=== PATIENT | female | born 1960 | race Caucasian/White ===

== ENCOUNTER 2024-08-15 13:57 | Emergency (ER) | payer BC, SELFPAY ==
[2024-08-15] VITALS (7 sets, daily range): BP systolic 116; BP diastolic 64; PULSE 74–92; RESP 16–20; TEMP 37.6; O2SAT 96–100; BMI 22.3
--- NOTE | 2024-08-15 14:32 | CRLHL7_ITS ---
For Patients: As a result of the Century Cures Act, medical imaging exams and procedure reports are released immediately into your electronic medical record. You may view this report before your referring provider. If you have questions, please contact your health care provider. INDICATION: Left lower quadrant pain, possible diverticulitis TECHNIQUE: CT abdomen and pelvis acquired with 74 cc Isovue 370 IV contrast. COMPARISON: None. FINDINGS: Lower chest: Bibasilar atelectasis. Liver: Unremarkable. Gallbladder and bile ducts: Unremarkable. No biliary ductal dilation. Pancreas: Unremarkable. Spleen: Unremarkable. Adrenal glands: Unremarkable. Kidneys: Unremarkable. GI tract: No obstruction. Bowel wall thickening and soft tissue stranding surrounding a proximal sigmoid diverticula (2/117). No evidence perforation or fluid collection. Appendix is not visualized. Vasculature: Abdominal aorta is normal in caliber. Mesenteric arteries are patent. Lymph nodes: No lymphadenopathy. Peritoneum/Abdominal Wall: Trace pelvic ascites. Tiny fat containing umbilical hernia. Pelvis: Evaluation of the pelvis is limited by streak artifact. Bones: Right total hip arthroplasty with the lateral most screw extending into the right gluteus minimus muscle. Mild degenerative disease of the lumbar spine, most severe at L4-L5 with severe disc height loss. IMPRESSION: Acute uncomplicated proximal sigmoid diverticulitis. Please note that all CT scans at this facility use dose modulation, iterative reconstruction, and/or weight-based dosing when appropriate to reduce radiation dose to as low as reasonably achievable. Dictated by Valentina Vieira MD @ 08/15/2024 4:40:10 PM (Electronically Signed)
--- NOTE | 2024-08-15 14:50 | ED_ITS ---
HPI - General Adult General Chief complaint: Abdominal Pain <Luis Haskins MD - Last Filed: 08/19/24 16:17> Stated complaint: possible diverticulitis <Luis Haskins MD - Last Filed: 08/19/24 16:17> Time Seen by Provider: 08/15/24 13:59 <Luis Haskins MD - Last Filed: 08/19/24 16:17> History of Present Illness HPI narrative: Patient is a 64 year white female has had a history of diverticulitis in the past. She last had it in March while she was on a cruise ship and it was presumed to be the case. She got better. Over last couple of days had increasing pain in her left lower quadrant. No other specific complaints. She has no fever of significance, no rigors, no chills, she has no chest pain or breathing problem. She has had no blood in her stool. <Luis Haskins MD - Last Filed: 08/19/24 16:17> Related Data Home medications: Home Medications ?Medication ?Instructions ?Recorded ?Confirmed atorvastatin 20 mg tablet mg PO DAILY 08/11/24 08/15/24 gabapentin 300 mg capsule 300 mg PO QDAY 08/11/24 08/15/24 hydroxyzine pamoate 25 mg capsule mg PO 08/11/24 08/15/24 <Luis Haskins MD - Last Filed: 08/19/24 16:17> Allergies/adverse reactions: Allergies Allergy/AdvReac Type Severity Reaction Status Date / Time Sulfa (Sulfonamide Allergy Intermediate Unknown Verified 08/15/24 16:31 Antibiotics) <Luis Haskins MD - Last Filed: 08/19/24 16:17> Review of Systems Status of ROS: Reports: 6 or more systems reviewed and unremarkable except as noted in History and below <Luis Haskins MD - Last Filed: 08/19/24 16:17> [facility] Surgical History: Surgical History H/O toe surgery (~04/2024) ?Z98.890 - Other specified postprocedural states (ICD-10) <Luis Haskins MD - Last Filed: 08/19/24 16:17> Exam Narrative: Exam Narrative: Objective: Patient has got a low-grade temperature 99.7? is in mild is moderate /2nd discomfort Alert or x3 Good color Pulses regular Abdomen is soft on the right, the left she has some voluntary guarding and rigidity and is tender. No palpable mass. Extremities are no edema Neurologic nonfocal Good peripheral perfusion noted No skin rashes noted. <Luis Haskins MD - Last Filed: 08/19/24 16:17> Const: Vital Signs, click to edit/add: Vital Signs - 24 hr 08/15/24 14:14 08/15/24 15:44 08/15/24 15:45 Temperature 99.7 F H Pulse Rate 74 75 Pulse Rate [Pulse Oximeter] 92 Respiratory Rate 20 16 Blood Pressure [Ri ght Upper Arm] 116/64 Pulse Oximetry 97 100 99 Oxygen Delivery Me thod Room Air 08/15/24 16:00 08/15/24 16:15 08/15/24 16:32 Temperature Pulse Rate 78 76 85 Pulse Rate [Pulse Oximeter] Respiratory Rate Blood Pressure [Ri ght Upper Arm] Pulse Oximetry 98 96 99 Oxygen Delivery Me thod 08/15/24 16:45 Temperature Pulse Rate 79 Pulse Rate [Pulse Oximeter] Respiratory Rate 16 Blood Pressure [Ri ght Upper Arm] Pulse Oximetry 99 Oxygen Delivery Me thod <Luis Haskins MD - Last Filed: 08/19/24 16:17> Vital Signs, click to edit/add: Vital Signs - 24 hr 08/15/24 14:14 08/15/24 15:44 08/15/24 15:45 Temperature 99.7 F H Pulse Rate 74 75 Pulse Rate [Pulse Oximeter] 92 Respiratory Rate 20 16 Blood Pressure [Ri ght Upper Arm] 116/64 Pulse Oximetry 97 100 99 Oxygen Delivery Me thod Room Air 08/15/24 16:00 08/15/24 16:15 08/15/24 16:32 Temperature Pulse Rate 78 76 85 Pulse Rate [Pulse Oximeter] Respiratory Rate Blood Pressure [Ri ght Upper Arm] Pulse Oximetry 98 96 99 Oxygen Delivery Me thod 08/15/24 16:45 Temperature Pulse Rate 79 Pulse Rate [Pulse Oximeter] Respiratory Rate 16 Blood Pressure [Ri ght Upper Arm] Pulse Oximetry 99 Oxygen Delivery Me thod <Jose Smith MD - Last Filed: 08/15/24 18:03> Course Course ED Course: Patient signed out to Dr. Smith by Dr. Johnson at 4:00 p.m. on 08/15/2024. 64-year-old female with a history of diverticulitis presenting with left lower quadrant abdominal pain suspicious for an episode of acute di verticulitis. Laboratory workup and vital signs are reassuring. She does have a low-grade fever. Dr. Johnson has ordered a CT scan. He expects to find an acute sigmoid diverticulitis, likely without any complication. If CT scan confirms that finding, patient can be discharged home on a course of antibiotics. If the CT scan shows surgical pathology, Dr. Smith will contact surgery and arrange admission or operation, as needed CT abd pelvis IMPRESSION: Acute uncomplicated proximal sigmoid diverticulitis. I recheck the patient at 5:00 p.m.. She was sitting up in bed, conversant. Still endorses fairly significant discomfort and still waves of nausea but also feeling a bit thirsty. She has eager to try to treat her diverticulitis at home and wants to avoid hospitalization, if possible. However she needs more pain and nausea medication before she can discharge. Will start her on IV antibiotics and try Zofran and Toradol. Recheck-has completed IV antibiotic, after meds patient feels adequate to go home. has filled her home going prescriptions. Precautions for return to the ER reviewed <Jose Smith MD - Last Filed: 08/15/24 18:03> Vital Signs Vital signs: Initial Vital Signs Temperature 99.7 F H 08/15/24 14:14 Temperature Source Temporal Artery Scan 08/15/24 14:14 Pulse Rate 92 08/15/24 14:14 Respiratory Rate 20 08/15/24 14:14 Blood Pressure 116/64 08/15/24 14:14 Blood Pressure Mean 81 08/15/24 14:14 Pulse Oximetry 97 08/15/24 14:14 Oxygen Delivery Method Room Air 08/15/24 14:14 Vital Signs Temperature 99.7 F H 08/15/24 14:14 Pulse Rate 92 08/15/24 14:14 Respiratory Rate 20 08/15/24 14:14 Blood Pressure 116/64 08/15/24 14:14 Pulse Oximetry 97 08/15/24 14:14 Oxygen Delivery Method Room Air 08/15/24 14:14 Temperature 99.7 F H 08/15/24 14:14 Pulse Rate 79 08/15/24 16:45 Respiratory Rate 16 08/15/24 16:45 Blood Pressure 116/64 08/15/24 14:14 Pulse Oximetry 99 08/15/24 16:45 Oxygen Delivery Method Room Air 08/15/24 14:14 <Luis Haskins MD - Last Filed: 08/19/24 16:17> Initial Vital Signs Temperature 99.7 F H 08/15/24 14:14 Temperature Source Temporal Artery Scan 08/15/24 14:14 Pulse Rate 92 08/15/24 14:14 Respiratory Rate 20 08/15/24 14:14 Blood Pressure 116/64 08/15/24 14:14 Blood Pressure Mean 81 08/15/24 14:14 Pulse Oximetry 97 08/15/24 14:14 Oxygen Delivery Method Room Air 08/15/24 14:14 Vital Signs Temperature 99.7 F H 08/15/24 14:14 Pulse Rate 92 08/15/24 14:14 Respiratory Rate 20 08/15/24 14:14 Blood Pressure 116/64 08/15/24 14:14 Pulse Oximetry 97 08/15/24 14:14 Oxygen Delivery Method Room Air 08/15/24 14:14 Temperature 99.7 F H 08/15/24 14:14 Pulse Rate 79 08/15/24 16:45 Respiratory Rate 16 08/15/24 16:45 Blood Pressure 116/64 08/15/24 14:14 Pulse Oximetry 99 08/15/24 16:45 Oxygen Delivery Method Room Air 08/15/24 14:14 <Jose Smith MD - Last Filed: 08/15/24 18:03> Medications Administered Medications: Discontinued Medications Generic Name Dose Route Start Last Admin Trade Name Freq PRN Reason Stop Dose Admin Sodium Chloride 1,000 mls @ 6,000 mls/hr 08/15/24 14:45 08/15/24 18:02 0.9 % Sodium Chloride 1000 Ml IV 08/15/24 14:54 Infused .Q10M PRETTY Infusion Piperacillin Sod/Tazobactam 100 mls @ 200 mls/hr 08/15/24 17:18 08/15/24 18:02 Sod 4.5 gm/ Sodium Chloride IVPB 08/15/24 17:19 Infused ONCE ONE Infusion Ketorolac Tromethamine 15 mg 08/15/24 17:18 08/15/24 17:35 Ketorolac 15 Mg/Ml Inj IVP 08/15/24 17:19 15 mg ONCE ONE Administration Morphine Sulfate 4 mg 08/15/24 14:32 08/15/24 15:32 Morphine 4 Mg/Ml Inj IVP 08/15/24 14:33 4 mg ONCE ONE Administration Ondansetron HCl 4 mg 08/15/24 17:18 08/15/24 17:35 Ondansetron 2 Mg/Ml Inj IVP 08/15/24 17:19 4 mg ONCE ONE Administration <Luis Haskins MD - Last Filed: 08/19/24 16:17> Discontinued Medications Generic Name Dose Route Start Last Admin Trade Name Freq PRN Reason Stop Dose Admin Sodium Chloride 1,000 mls @ 6,000 mls/hr 08/15/24 14:45 08/15/24 18:02 0.9 % Sodium Chloride 1000 Ml IV 08/15/24 14:54 Infused .Q10M PRETTY Infusion Piperacillin Sod/Tazobactam 100 mls @ 200 mls/hr 08/15/24 17:18 08/15/24 18:02 Sod 4.5 gm/ Sodium Chloride IVPB 08/15/24 17:19 Infused ONCE ONE Infusion Ketorolac Tromethamine 15 mg 08/15/24 17:18 08/15/24 17:35 Ketorolac 15 Mg/Ml Inj IVP 08/15/24 17:19 15 mg ONCE ONE Administration Morphine Sulfate 4 mg 08/15/24 14:32 08/15/24 15:32 Morphine 4 Mg/Ml Inj IVP 08/15/24 14:33 4 mg ONCE ONE Administration Ondansetron HCl 4 mg 08/15/24 17:18 08/15/24 17:35 Ondansetron 2 Mg/Ml Inj IVP 08/15/24 17:19 4 mg ONCE ONE Administration <Jose Smith MD - Last Filed: 08/15/24 18:03> Medical Decision Making MDM Narrative Medical decision making narrative: 64-year-old female with mild peritonitic signs in the left lower quadrant, history of what is presumed to be diverticulosis diverticulitis, now with left lower quadrant pain for couple days duration increasing symptoms, mild peritoneal signs. Will do CT scanning laboratory studies, pain control, IV fluid. NPO status. Differential be intra-abdominal infection, diverticulitis, urinary tract infection. Will check the above-mentioned studies disposition pending findings. Patient's labs and urine at this time appear unremarkable. Await CT scanning. IV pain medicine was given. Will discuss Dr. Smith at change of shift. <Luis Haskins MD - Last Filed: 08/19/24 16:17> Lab Data Labs: Lab Results 08/15/24 08/15/24 Range/Units 14:45 15:09 WBC 9.67 (4.50-11.00) K/uL RBC 4.48 (4.00-5.20) m/uL Hgb 13.7 (12.0-16.0) gm/dL Hct 41.7 (33.0-51.0) % MCV 93 (80-100) fL MCH 31 (26-34) pg MCHC 33 (32-36) gm/dL RDW Coeff of Morgan 12.7 (11.5-15.5) % Plt Count 308 (140-440) K/uL Neut % (Auto) 76.3 H (42.0-72.0) % Lymph % (Auto) 13.8 L (20-44) % Gaines % (Auto) 8.7 (0.0-11.0) % Eos % (Auto) 0.8 (0.0-7.0) % Baso % (Auto) 0.2 (0.0-3.0) % Neut # (Auto) 7.40 H (1.7-7.0) K/uL Lymph # (Auto) 1.30 (0.90-2.90) K/uL Gaines # (Auto) 0.80 (0.00-0.90) K/UL Eos # (Auto) 0.08 (0.00-0.50) K/uL Baso # (Auto) 0.02 (0.00-0.30) K/uL Abs Immat Gran (auto) 0.02 (0.00-0.30) K/uL Imm/Tot Granulo (auto) 0.2 % Sodium 136 (135-149) mmol/L Potassium 4.8 (3.6-5.1) mmol/L Chloride 99 (96-114) mmol/L Carbon Dioxide 27 (20-32) mmol/L Anion Gap 10 (7-15) mEq/L BUN 9 (7-30) mg/dL Creatinine 0.7 (0.5-1.5) mg/dL Estimated Creat Clear 60.96 Estimated GFR 98 ml/min Glucose 105 (60-115) mg/dL Calcium 9.6 (8.4-10.6) mg/dL C-Reactive Protein 12.3 H (0.5-1.0) mg/dL Amylase 56 (18-89) U/L Urine Color Yellow (Yellow) Urine Appearance Slightly Cloudy A (Clear) Urine pH 6.0 (5.0-8.5) Ur Specific [place] <= 1.005 (1.000-1.030) Urine Protein Negative (Negative) Urine Glucose (UA) Negative (Negative) Urine Ketones 1+ A (Negative) Urine Blood Negative (Negative) Urine Nitrite Negative (Negative) Urine Bilirubin Negative (Negative) Urine Urobilinogen 0.2 (0.2-1.0) Ur Leukocyte Esterase Negative (Negative) Urine RBC 0-2 (0-2) Urine WBC 2-5 (0-5) Ur Squamous Epith Cells Few (None-Few) Urine Bacteria Few A (None) Fine Granular Casts Few A (None) <Luis Haskins MD - Last Filed: 08/19/24 16:17> Lab Results 08/15/24 08/15/24 Range/Units 14:45 15:09 WBC 9.67 (4.50-11.00) K/uL RBC 4.48 (4.00-5.20) m/uL Hgb 13.7 (12.0-16.0) gm/dL Hct 41.7 (33.0-51.0) % MCV 93 (80-100) fL MCH 31 (26-34) pg MCHC 33 (32-36) gm/dL RDW Coeff of Morgan 12.7 (11.5-15.5) % Plt Count 308 (140-440) K/uL Neut % (Auto) 76.3 H (42.0-72.0) % Lymph % (Auto) 13.8 L (20-44) % Gaines % (Auto) 8.7 (0.0-11.0) % Eos % (Auto) 0.8 (0.0-7.0) % Baso % (Auto) 0.2 (0.0-3.0) % Neut # (Auto) 7.40 H (1.7-7.0) K/uL Lymph # (Auto) 1.30 (0.90-2.90) K/uL Gaines # (Auto) 0.80 (0.00-0.90) K/UL Eos # (Auto) 0.08 (0.00-0.50) K/uL Baso # (Auto) 0.02 (0.00-0.30) K/uL Abs Immat Gran (auto) 0.02 (0.00-0.30) K/uL Imm/Tot Granulo (auto) 0.2 % Sodium 136 (135-149) mmol/L Potassium 4.8 (3.6-5.1) mmol/L Chloride 99 (96-114) mmol/L Carbon Dioxide 27 (20-32) mmol/L Anion Gap 10 (7-15) mEq/L BUN 9 (7-30) mg/dL Creatinine 0.7 (0.5-1.5) mg/dL Estimated Creat Clear 60.96 Estimated GFR 98 ml/min Glucose 105 (60-115) mg/dL Calcium 9.6 (8.4-10.6) mg/dL C-Reactive Protein 12.3 H (0.5-1.0) mg/dL Amylase 56 (18-89) U/L Urine Color Yellow (Yellow) Urine Appearance Slightly Cloudy A (Clear) Urine pH 6.0 (5.0-8.5) Ur Specific [place] <= 1.005 (1.000-1.030) Urine Protein Negative (Negative) Urine Glucose (UA) Negative (Negative) Urine Ketones 1+ A (Negative) Urine Blood Negative (Negative) Urine Nitrite Negative (Negative) Urine Bilirubin Negative (Negative) Urine Urobilinogen 0.2 (0.2-1.0) Ur Leukocyte Esterase Negative (Negative) Urine RBC 0-2 (0-2) Urine WBC 2-5 (0-5) Ur Squamous Epith Cells Few (None-Few) Urine Bacteria Few A (None) Fine Granular Casts Few A (None) <Jose Smith MD - Last Filed: 08/15/24 18:03> Discharge Plan Discharge Clinical Impression: Left sided abdominal pain <Luis Haskins MD - Last Filed: 08/19/24 16:17> Patient Disposition: Home, Self-Care <Luis Haskins MD - Last Filed: 08/19/24 16:17> Condition: Stable <Luis Haskins MD - Last Filed: 08/19/24 16:17> Instructions: Abdominal Pain (ED) <Luis Haskins MD - Last Filed: 08/19/24 16:17> Additional Instructions: As we discussed, please take your next dose of antibiotic tonight before you go to bed and use her antibiotic twice daily. Please return to the ER right away if you have worsening pain, high fever, uncontrolled nausea or vomiting, weakness, or any concerns. Please recheck with your regular doctor within 1 week for re-evaluation, even if you get better <Luis Haskins MD - Last Filed: 08/19/24 16:17> Prescriptions: No Action atorvastatin 20 mg tablet PO DAILY hydroxyzine pamoate 25 mg capsule PO Patient Comments: [NO ORIGINAL SIG] gabapentin 300 mg capsule 300 mg PO QDAY <Luis Haskins MD - Last Filed: 08/19/24 16:17> Follow Up/Referrals: Provider,Not a Local [Primary Care Provider] - <Luis Haskins MD - Last Filed: 08/19/24 16:17> Stand Alone Forms: [facility] Info Instructions <Luis Haskins MD - Last Filed: 08/19/24 16:17>
[2024-08-15 14:54] LABS: Appearance Urine Slightly Cloudy (Clear); Bilirubin Urine Negative (Negative); Blood Urine Negative (Negative); Color Urine Yellow (Yellow); Glucose Urine Negative (Negative); Ketones Urine 1+ (Negative); Leukocyte Esterase Urine Negative (Negative); Nitrite Urine Negative (Negative); Protein Urine Negative (Negative); Specific Gravity Urine <= 1.005 (1.000-1.030); Urobilinogen Urine 0.2 (0.2-1.0)
[2024-08-15 15:07] LABS: Bacteria Urine Few; Fine Granular Casts Urine Few; RBC Urine 0-2 (0-2); Squamous Epithelial Cell Urine Few (None-Few)
[2024-08-15] MEDS: MORPHINE 4 MG/ML INJ IVP (15:32)
[2024-08-15] MEDS: 0.9 % SODIUM CHLORIDE 1000 ml 1,000 ML 6000 ML IV (15:32)
[2024-08-15 15:43] LABS: Basophils Absolute Auto 0.02 K/uL (0.00-0.30); Basophils Percent Auto 0.2 % (0.0-3.0); Chloride* 99 mmol/L (96-114); Eosinophils Absolute Auto 0.08 K/uL (0.00-0.50); Eosinophils Percent Auto 0.8 % (0.0-7.0); Hematocrit 41.7 % (33.0-51.0); Hemoglobin* 13.7 gm/dL (12.0-16.0); Immature Granulocytes Abs Auto 0.02 K/uL (0.00-0.30); Immature Granulocytes Pct Auto 0.2 %; Lymphocytes Percent Auto 13.8 % (20-44); Mean Corpuscular HGB Conc 33 gm/dL (32-36); Mean Corpuscular Hemoglobin 31 pg (26-34); Mean Corpuscular Volume 93 fL (80-100); Monocytes Percent Auto 8.7 % (0.0-11.0); Neutrophils Percent Auto 76.3 % (42.0-72.0); Platelet Count* 308 K/uL (140-440); Potassium* 4.8 mmol/L (3.6-5.1); RDW Coefficient of Variation % 12.7 % (11.5-15.5); Red Blood Count 4.48 m/uL (4.00-5.20); Sodium* 136 mmol/L (135-149); White Blood Count* 9.67 K/uL (4.50-11.00)
[2024-08-15 15:46] LABS: Amylase* 56 U/L (18-89); Anion Gap 10 mEq/L (7-15); Blood Urea Nitrogen* 9 mg/dL (7-30); Carbon Dioxide* 27 mmol/L (20-32); Creatinine* 0.7 mg/dL (0.5-1.5); Est. Creatinine Clearance* 60.96; Estimated Glomerular Filt Rate 98 ml/min; Glucose* 105 mg/dL (60-115)
--- OUTSIDE RECORDS SUMMARY | 2024-08-15 15:46 | XMS_ITS | Clinical Summary ---
Author Organization [facility] Address [address] [place] [id number] Care Team Providers Care Striper Name Role Phone Axel Victor MD Unavailable Lawrence Rowland PA-C Unavailable [phone] Axel Victor MD Primary Care Provider [phone] Allergies Active Allergy Reactions Criticality Noted Date Comments Sulfa Antibiotics Unknown,Other (See Comments) Medium 09/18/2002 Pt not sure of reaction, happened as an infant Medications atorvastatin (LIPITOR) 20 MG tablet TAKE 1 TABLET BY MOUTH EVERY NIGHT FOR CHOLESTEROL OR STROKE PREVENTION 1 Active LORazepam (ATIVAN) 2 MG tabletIndicatio ns:Primary insomnia TAKE ONE TABLET BY MOUTH EVERY SIX HOURS NEEDED FOR ANXIETY 60 tablet 3 Active busPIRone (BUSPAR) 10 MG tablet Take 1 tablet (10 mg) by mouth nightly as needed 30 tablet 4 Active Additional Information Patient not taking.Reported on 09/12/2023 diazepam (VALIUM) 5 MG tabletIndicatio ns:Claustrophob ia Take 1 hr prior to scheduled MRI for anxiety 1 tablet 4 Active cyclobenzaprine (FLEXERIL) 10 MG tabletIndicatio ns:Strain of neck muscle, subsequent encounter Take 1 tablet (10 mg) by mouth daily as needed for muscle spasms. 60 tablet 5 Active Active Problems Problem Noted Date Diagnosed Date Epigastric pain 06/15/2023 Overview (06/15/2023): Has seen GI in past. Following now with [facility] and scheduled for EGD Inflammation of sacroiliac joint 05/12/2023 Strain of neck muscle, subsequent encounter 02/2023 Overview (01/23/2024): Does have hx of chronic pain, taking tramadol in past but not currently. Is reasonably controlled with cyclobenzaprine. Discussed that I would not recommend tramadol, especially in setting of benzodiazepine for sleep and patient is comfortable with maintaining Flexeril and starting with PT referral. Discussed needing pain management referral if looking to restart tramadol. 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 I think it unlikely that off-label usage of other types of medication would result in any greater benefit. Presently-utilized lorazepam works reasonably well, and she arrived at this medication after trials of many others. She has not needed to escalate the dosage for an extended period of time and denies any associated adverse effects. I would recommend continuation of this medication. There is no concurrent addiction history. I also think she would greatly benefit from behavioral interventions for insomnia (cognitive behavioral therapy for insomnia or CBT-I). We specifically discussed stimulus control and sleep-restriction measures. I will send her the name of a behavioral sleep medicine specialist close to her local area. Longitudinal provision of CBT-I with such a provider is considered gold standard. Success rates are typically quoted at 8 weeks, assuming dedicated adherence. Given the chronicity of the patient's complaints, I think it unlikely that she will ever be a good sleeper, but there is clearly much room for improvement. I will send additional online, [place], and literature resources. 03/2023 appt with new PCP: Did discuss that this is not best long-term treatment especially as patient ages. Discussed CBT-I and need to likely reduce pharmacotherapy in the upcoming years and patient is understanding and agreeable. Occipital neuralgia of left side 02/29/2020 Avascular necrosis of right femoral head 019 Acquired hallux valgus of right foot 01/02/2018 Overview (05/12/2023): Added automatically from request for surgery [id number] Added automatically from request for surgery [id number] Curly toe, acquired, right 01/02/2018 Overview (05/12/2023): Added automatically from request for surgery [id number] Added automatically from request for surgery [id number] Chronic low back pain 09/22/2016 Neck pain on left side 07/30/2016 Gastroesophageal reflux disease 06/06/2015 Spondylosis of cervical spine without myelopathy 12/03/2014 Encounters Date Type Department Care Team Description 07/25/2024 2:15 PM ANIMAL RIDE MANAGER Virtual Visit [facility] [address] [place] [phone] Axel Victor MD Carlson, Cody M, GC Family history of malignant neoplasm of breast (Primary Dx); Family history of malignant neoplasm of colon 07/23/2024 MyC Medical Advice [facility] [address] [place] [phone] Cristopher Velasquez GC 07/19/[address] [facility] [address] [place] [phone] Kalie River 07/02/[address] [facility] [place] [address] [place] [address] Axel Victor MD Refill Request 05/21/[address] [facility] [place] [address] [place] [address] Anny Koehler from Last 3 Months Immunizations Name Administration Dates Next Due COVID-19 12+ (Pfizer) 05/12/2023 Flu, Unspecified 03/06/2020 Influenza Vaccine 18-64 (Flublok) 03/11/2023 Influenza Vaccine >6 months,quad, PF 08/16/2019 Pneumo Conj 13-V (2010&after) 08/16/2019 RSV (Abrysvo) 05/12/2023 Family History Medical History Relation Comments Breast Cancer Daughter Heart Disease Father tachy Hypertension Father Lipids Mother Family History Negative Sister 2 Relation Status Comments Daughter Alive Father Mother Sister Social History Tobacco Use Types Packs/Day Years Used Date Smoking Tobacco: Never Passive Smoke Exposure: Never Smokeless Tobacco: Never Alcohol Use Standard Drinks/Week Comments Yes 4 (1 standard drink = 0.6 oz pur e alcohol) 4 drinks per week PHQ-2 Answer Date Recorded PHQ-2 Score 2 06/15/2023 Adolescent Education Answer Date Record ed Getting School Help Needed Not on file 03/10 Food Insecurity Answer Date Recorded Within the past 12 months, d id you worry that your food would run out before you got money to buy more? No 06/15/2023 Within the past 12 months, d id the food you bought just not last and you didn t have money to get more? No 06/15/2023 Housing Stability Answer Date Recorded Do you have housing? (Housin g is defined as stable permanent housing and does not include staying ouside in a car, in a tent, in an abandoned building, in an overnight senior care, or couch-surfing.) Yes 06/15/2023 Are you worried about losing your housing? No 06/15/2023 Financial Resource Strain Answer Date R ecorded Within the past 12 months, h ave you or your family members you live with been unable to get utilities (heat, electricity) when it was really needed? No 06/15/2023 Transportation Needs Answer Date Record ed Within the past 12 months, h as lack of transportation kept you from medical appointments, getting your medicines, non-medical meetings or appointments, work, or from getting things that you need? No 06/15/2023 Interpersonal Safety Answer Date Record ed Do you feel physically and e motionally safe where you currently live? Yes 03/11/2023 Within the past 12 months, h ave you been hit, slapped, kicked or otherwise physically hurt by someone? No 03/11/2023 Within the past 12 months, h ave you been humiliated or emotionally abused in other ways by your partner or ex-partner? No 03/11/2023 Comments No Sex and Gender Information Value Date Recorded Sex Assigned at Not on file Legal Sex Female 3:12 AM ANIMAL RIDE MANAGER Gender Identity Not on file Sexual Orientation Not on file Last Filed Vital Signs Vital Sign Reading Time Taken Comments Blood Pressure 137/77 09/12/2023 4:27 PM CDT Pulse 87 09/12/2023 4:27 PM CDT Temperature 36.8 C (98.2 F) 09/12/2023 4:27 PM CDT Respiratory Rate 19 06/15/2023 1:55 PM ANIMAL RIDE MANAGER Oxygen Saturation 99% 09/12/2023 4:27 PM CDT Inhaled Oxygen Concentration - - Weight 67.6 kg (149 lb) 06/15/2023 1:55 PM ANIMAL RIDE MANAGER Height 175.3 cm (5' 9) 06/15/2023 1:55 PM ANIMAL RIDE MANAGER Body Mass Index 22 06/15/2023 1:55 PM ANIMAL RIDE MANAGER Plan of Treatment Upcoming Encounters Date Type Department Care Team (Late st Contact Info) Description 08/29/2024 3:30 PM CDT Office Visit [facility] [address] [place] [address] [place] [address] [place] [address] Health Maintenance Due Date Last Done Comments CT COLONOGRAPHY 1962 DEPRESSION ACTION PLAN 1962 FIT 1962 FLEX SIG 1962 sDNA (Cologuard) 1962 HEPATITIS C SCREENING 1980 DTAP/TDAP/TD IMMUNIZATION (1 - Tdap) 1987 ZOSTER IMMUNIZATION (1 of 2) 2012 Pneumococcal Vaccine: 50+ Years (2 of 2 - PPSV23) 08/15/2020 08/16/2019 PHQ-9 09/10/2023 03/11/2023, 02/03/2023 COVID-19 Vaccine (2 - season) 2024 05/12/2023 INFLUENZA VACCINE (#1) 2024 , 03/06/2020, 08/16/2019 ANNUAL REVIEW OF HM ORDERS 05/12/2024 05/12/2023 LIPID 05/12/2024 05/12/2023, 04/27/2022 YEARLY PREVENTIVE VISIT 06/15/2024 06/15/2023 MAMMO SCREENING 09/13/2025 09/14/2023, 0312/2022, 08/20/2022, Additional history exists GLUCOSE 05/12/2026 05/12/2023, 04/02/2009, 09/18/2002 HPV FOLLOW-UP 06/15/2028 06/15/2023 PAP FOLLOW-UP 06/15/2028 06/15/2023, 01/01/1999 ADVANCE CARE PLANNING 06/16/2028 06/16/2023 COLONOSCOPY 06/16/2030 06/16/2023 COLORECTAL CANCER SCREENING 06/16/2030 HIV SCREENING Completed 05/12/2023 RSV VACCINE Completed 05/12/2023 PAP Discontinued 06/15/2023, 01/01/1999 HPV IMMUNIZATION Aged Out No longer e ligible based on patient's age to complete this topic MENINGITIS IMMUNIZATION Aged Out No l onger eligible based on patient's age to complete this topic Procedures Procedure Name Priority Date/Time Associated Diagnosis Comments MAMMOGRAM - HIM SCAN 09/14/2023 12:00 AM CDT COLONOSCOPY - HIM SCAN 06/16/2023 12:00 AM ANIMAL RIDE MANAGER HPV HIGH RISK TYPES DNA CERVICAL Routine 06/15/2023 2:32 PM ANIMAL RIDE MANAGER Cervical cancer screening GYNECOLOGIC CYTOLOGY Routine 06/15/2023 2:32 PM ANIMAL RIDE MANAGER Cervical cancer screening COMPREHENSIVE METABOLIC PANEL Routine 05/12/2023 4:29 PM ANIMAL RIDE MANAGER Upper abdominal pain HIV ANTIGEN ANTIBODY COMBO Routine 05/12/2023 4:29 PM ANIMAL RIDE MANAGER Screening for HIV (human immunodeficiency virus) LIPID REFLEX TO DIRECT LDL PANEL Routine 05/12/2023 4:29 PM ANIMAL RIDE MANAGER Elevated blood pressure reading without diagnosis of hypertension PHQ-9 DEPRESSION SCREENING ORDER Routine 02/03/2023 from Last 3 Months or Most Recently Relevant to Health Maintenance Results * Mammogram - HIM Scan (09/14/2023 12:00 AM CDT) Anatomical Region Laterality Modality Other 09/14/2023 us Provider Outside IMG MAMMOGRAPHY ORDERABLES Maggy l Result * COLONOSCOPY - HIM SCAN (06/16/2023 12:00 AM ANIMAL RIDE MANAGER) 06/16/2023 us Provider Outside PROCEDURES Final Result * Pap Screen with HPV - recommended age 30 - 65 years (06/15/2023 2:32 PM ANIMAL RIDE MANAGER) Interpretation Negative for Intraepithelial Lesion or Malignancy (NILM) 06/20/2023 8:55 AM ANIMAL RIDE MANAGER [facility] Comment Papanicolaou Test Limitations: Cervical cytology is a screening test with limited sensitivity, and regular screening is critical for cancer prevention. Pap tests are primarily effective for the diagnosis/prevent ion of squamous cell carcinoma, not adenocarcinoma or other cancers. 06/20/2023 8:55 AM ANIMAL RIDE MANAGER [facility] Specimen Adequacy Satisfactory for evaluation, endocervical/valero sformation zone component present 06/20/2023 8:55 AM ANIMAL RIDE MANAGER [facility] Clinical Information post-menopausal 06/20/2023 8:55 AM ANIMAL RIDE MANAGER [facility] Reflex Testing Yes regardless of result 06/20/2023 8:55 AM ANIMAL RIDE MANAGER [facility] Previous Abnormal? No 06/20/2023 8:55 AM ANIMAL RIDE MANAGER [facility] Performing Labs The technical component of this testing was completed at [facility] 06/20/2023 8:55 AM ANIMAL RIDE MANAGER [facility] Brushing CERVIX UTERI STRUCTURE / Unknown 06/15/2023 2:32 PM ANIMAL RIDE MANAGER 06/15/2023 3:14 PM ANIMAL RIDE MANAGER us Axel Victor MD LAB - DORI AP Final Result [facility] Specialty Lab [address] [facility], [address] [address], [facility] [phone] * HPV High Risk Types DNA Cervical (06/15/2023 2:32 PM ANIMAL RIDE MANAGER) Other HR HPV Negative Negative 06/21/2023 2:14 PM ANIMAL RIDE MANAGER [facility] HPV16 DNA Negative Negative 06/21/2023 2:14 PM ANIMAL RIDE MANAGER [facility] HPV18 DNA Negative Negative 06/21/2023 2:14 PM ANIMAL RIDE MANAGER [facility] FINAL DIAGNOSIS This patient's sample is negative for HPV DNA. This test was developed and its performance characteristics determined by the [facility], [facility]. It has not been cleared or approved by the FDA. The laboratory is regulated under CLIA as qualified to perform high-complexity testing. This test is used for clinical purposes. It should not be regarded as investigational or for research. METHODOLOGY: The Johanna Halina 4800 system uses automated extraction, simultaneous amplification of HPV (L1 region) and beta-globin, followed by real time detection of fluorescent labeled HPV and beta globin using specific oligonucleotide probes. The test specifically identifies types HPV 16 DNA and HPV 18 DNA while concurrently detecting the rest of the high risk types (31, 33, 35, 39, 45, 51, 52, 56, 58, 59, 66 or 68). COMMENTS: This test is not intended for use as a screening device for woman under age 30 with normal cervical cytology. Results should be correlated with cytologic and histologic findings. Close clinical followup is recommended. 06/21/2023 2:14 PM ANIMAL RIDE MANAGER [facility] Brushing CERVIX UTERI STRUCTURE / Unknown Non-blood Collection / Unknown 06/15/2023 2:32 PM ANIMAL RIDE MANAGER 06/21/2023 7:41 AM ANIMAL RIDE MANAGER us Axel Victor MD LAB - BLOOD ORDERABLES Final Res ult [facility] [address] [facility] [address], [address] [address], [facility] [phone] * HIV Antigen Antibody Combo (05/12/2023 4:29 PM ANIMAL RIDE MANAGER) HIV Antigen Antibody Combo Nonreactive Nonreactive 05/13/2023 12:46 PM ANIMAL RIDE MANAGER SPECIALTY C[facility]/PROT/EN DO Comment:HIV-1 p24 Ag & HIV-1 /HIV-2 Ab Not Detected Blood STRUCTURE OF RIGHT UPPER LIMB / Unknown Venipuncture / Unknown 05/12/2023 4:29 PM ANIMAL RIDE MANAGER 05/12/2023 4:29 PM ANIMAL RIDE MANAGER us Amina D ePaz MD LAB - BLOOD ORDERABLES Final Re sult [facility] C[facility]/PROT/ENDO [facility]/Prot/Endo [address] [facility], [address] [address], [facility] [phone] * (ABNORMAL) Lipid panel reflex to direct LDL Fasting (05/12/2023 4:29 PM ANIMAL RIDE MANAGER) Cholesterol 196 <200 mg/dL 05/12/2023 11:01 PM ANIMAL RIDE MANAGER [facility] Triglycerides 58 <150 mg/dL 05/12/2023 11:01 PM ANIMAL RIDE MANAGER [facility] Direct Measure HDL 77 >=50 mg/dL 05/12/2023 11:01 PM ANIMAL RIDE MANAGER [facility] LDL Cholesterol Calculated 107(H) <=100 mg/dL 05/12/2023 11:01 PM ANIMAL RIDE MANAGER [facility] Non HDL Cholesterol 119 <130 mg/dL 05/12/2023 11:01 PM ANIMAL RIDE MANAGER [facility] Patient Fasting > 8hrs? Unknown 05/12/2023 11:01 PM ANIMAL RIDE MANAGER [facility] Blood STRUCTURE OF RIGHT UPPER LIMB / Unknown Venipuncture / Unknown 05/12/2023 4:29 PM ANIMAL RIDE MANAGER 05/12/2023 4:29 PM ANIMAL RIDE MANAGER [facility] - 05/12/2023 11:01 PM ANIMAL RIDE MANAGER Cholesterol Desirable: <200 mg/dL Triglycerides Normal: Less than 150 mg/dL Borderline High: 150-199 mg/dL High: 200-499 mg/dL Very High: Greater than or equal to 500 mg/dL Direct Measure HDL Female: Greater than or equal to 50 mg/dL Male: Greater than or equal to 40 mg/dL LDL Cholesterol Desirable: <100mg/dL Above Desirable: 100-129 mg/dL Borderline High: 130-159 mg/dL High: 160-189 mg/dL Very High: >= 190 mg/dL Non HDL Cholesterol Desirable: 130 mg/dL Above Desirable: 130-159 mg/dL Borderline High: 160-189 mg/dL High: 190-219 mg/dL Very High: Greater than or equal to 220 mg/dL us Amina De Paz MD LAB - BLOOD ORDERABLES Final Re sult [facility] [place] [address] [facility], [address] [id number], [facility] [phone] * Comprehensive metabolic panel (BMP + Alb, Alk Phos, ALT, AST, Total. Bili, TP) (05/12/2023 4:29 PM ANIMAL RIDE MANAGER) Sodium 140 135 - 145 mmol/L 05/12/2023 11:01 PM ANIMAL RIDE MANAGER [facility] Comment:Reference intervals for this test were updated on 03/01/2023 to more accurately reflect our healthy population. There may be differences in the flagging of prior results with similar values performed with this method. Interpretation of those prior results can be made in the context of the updated reference intervals. Potassium 4.0 3.4 - 5.3 mmol/L 05/12/2023 11:01 PM ANIMAL RIDE MANAGER [facility] Carbon Dioxide (CO2) 26 22 - 29 mmol/L 05/12/2023 11:01 PM ANIMAL RIDE MANAGER [facility] Anion Gap 14 7 - 15 mmol/L 05/12/2023 11:01 PM ANIMAL RIDE MANAGER [facility] Urea Nitrogen 8.2 8.0 - 23.0 mg/dL 05/12/2023 11:01 PM ANIMAL RIDE MANAGER [facility] Creatinine 0.66 0.51 - 0.95 mg/dL 05/12/2023 11:01 PM ANIMAL RIDE MANAGER [facility] GFR Estimate >90 >60 mL/min/1. 73m2 05/12/2023 11:01 PM ANIMAL RIDE MANAGER [facility] Calcium 10.1 8.8 - 10.2 mg/dL 05/12/2023 11:01 PM ANIMAL RIDE MANAGER [facility] Chloride 100 98 - 107 mmol/L 05/12/2023 11:01 PM ANIMAL RIDE MANAGER [facility] Glucose 89 70 - 99 mg/dL 05/12/2023 11:01 PM ANIMAL RIDE MANAGER [facility] Alkaline Phosphatase 55 40 - 150 U/L 05/12/2023 11:01 PM ANIMAL RIDE MANAGER [facility] Comment:Reference intervals for this test were updated on 04/19/2023 to more accurately reflect our healthy population. There may be differences in the flagging of prior results with similar values performed with this method. Interpretation of those prior results can be made in the context of the updated reference intervals. AST 22 0 - 45 U/L 05/12/2023 11:01 PM ANIMAL RIDE MANAGER [facility] Comment:Reference intervals for this test were updated on 11/15/2022 to more accurately reflect our healthy population. There may be differences in the flagging of prior results with similar values performed with this method. Interpretation of those prior results can be made in the context of the updated reference intervals. ALT 16 0 - 50 U/L 05/12/2023 11:01 PM ANIMAL RIDE MANAGER [facility] Comment:Reference intervals for this test were updated on 11/15/2022 to more accurately reflect our healthy population. There may be differences in the flagging of prior results with similar values performed with this method. Interpretation of those prior results can be made in the context of the updated reference intervals. Protein Total 7.3 6.4 - 8.3 g/dL 05/12/2023 11:01 PM ANIMAL RIDE MANAGER [facility] Albumin 4.4 3.5 - 5.2 g/dL 05/12/2023 11:01 PM ANIMAL RIDE MANAGER [facility] Bilirubin Total 0.4 <=1.2 mg/dL 05/12/2023 11:01 PM ANIMAL RIDE MANAGER [facility] Blood STRUCTURE OF RIGHT UPPER LIMB / Unknown Venipuncture / Unknown 05/12/2023 4:29 PM ANIMAL RIDE MANAGER 05/12/2023 4:29 PM ANIMAL RIDE MANAGER us Amina De Paz MD LAB - BLOOD ORDERABLES Final Re sult [facility] [address] [facility], [address] [place] [address], [facility] [phone] * PHQ-9 DEPRESSION SCREENING ORDER (02/03/2023) PHQ9 SCORE 9 Narrative Sussy Rincon - 02/03/2023 OUTSIDE RECORDS Progress Note us Provider Outside OTHER Final Result from Last 3 Months or Most Recently Relevant to Health Maintenance Insurance BCBS OUT OF STATE BCBS OUT OF STATE Care Teams Striper Relationship Specialty [place] [id number] [address] [id number] PCP - General Family Medicine 07/25/24 [place] [address] [address] [address] [id number] Assigned PCP 06/30/23 Lawrence Rowland PA-C 1 [facility] [place] [id number] Assigned Sleep Provider 08/19/23
--- OUTSIDE RECORDS SUMMARY | 2024-08-15 15:46 | XMS_ITS | Encounter Summary ---
Author Organization [facility] Address [address] [place] [address] Care Team Providers Care Trim Line Worker Name Role Phone No Ref-Primary, Physician Primary Care Provider Axel Victor MD Unavailable Lawrence Rowland PA-C Unavailable + [phone] Axel Victor MD Primary Care Provider [phone] Encounter Details Date Type Department Care Team (Late st Contact Info) Description 05/21/2024 [facility] Medical Advice [address] [address] Anny Koehler Social History Tobacco Use Types Packs/Day Years [...] in an abandoned building, in an overnight snf, or couch-surfing.) Yes 06/15/2023 Are you worried [...] on file Legal Sex Female 3:12 AM 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 OPERATOR Gender Identity Not on file Sexual Orientation Not on file documented as of this encounter Plan of Treatment Upcoming Encounters Date Type Department Care Team (Late st Contact Info) Description 08/29/2024 3:30 PM CDT Office Visit [facility] [address] [place] [address] [place] [address] [place] [address] documented as of this encounter Visit Diagnoses Not on filedocumented in this encounter Additional Health Concerns Assessment Noted Time PHQ-9 Depression Total Score: 13 023 10:50 AM CDT documented as of this encounter Care Teams Trim Line Worker Relationship Specialty Start Date End Date No Ref-Primary, Physician PCP - General 07/03/19 07/24/24 [place] [address] [place] [address] PCP - General Family Medicine 07/25/24 [place] [id number] [address] [phone] Assigned PCP 06/30/23 Lawrence Rowland PA-C 1 [facility] NABIL[place] LOBO [id number] Assigned Sleep Provider 08/19/23 documented as of this encounter
--- OUTSIDE RECORDS SUMMARY | 2024-08-15 15:46 | XMS_ITS | Encounter Summary ---
Author Organization [facility] Address [address] [place] [address]. [place] [address] Care Team Providers Care Application Penetration Tester Name Role Phone Axel Victor MD Unavailable Lawrence Rowland PA-C Unavailable + [phone] Axel Victor MD Primary Care Provider [phone] Reason for Visit * Reason Comments Consult * Consultation (Routine) - Pending Review Specialty Diagnoses / Procedures Referred By Tereza hood Referred To Contact Medical Oncology Diagnoses Family history [place] [address] [place] [id number] Phone: tel: fax: Referral ID Status Reason Start Date Expiration Date V isits Requested Visits Authorized [id number] Pending Review 01/23/2024 01/22/2025 2 2 Encounter Details Date Type Department Care Team (Late st Contact Info) Description 07/25/2024 2:15 PM CMO & PRESIDENT Virtual Visit [facility] [address] [place] [address] [place] [address] [place] [address] Cristopher Velasquez, [address] [place], [place] [address] Family history of malignant neoplasm of breast (Primary Dx); Family history of malignant neoplasm of colon Social History Tobacco Use Types Packs/Day Years [...] Answer Date Recorded Do you have housing? (Brittnee g is defined as stable permanent housing and does not include staying ouside in a car, in a tent, in an abandoned building, in an overnight assisted, or couch-surfing.) Yes 06/15/2023 Are you worried [...] on file Legal Sex Female 3:12 AM CMO & PRESIDENT Gender Identity Not on file Sexual Orientation Not on file documented as of this encounter Patient Instructions * Patient Instructions* Cristopher Velasquez, GC - 07/25/2024 2:15 PM CMO & PRESIDENT Images from the original note were not included. Assessing Cancer Risk Cancer is a common diagnosis which impacts many families. Individuals may develop cancer due to environmental factors (such as exposures and lifestyle), aging, genetic predisposition, or a combination of these factors. Only about 5-10% of cancers are thought to be due to an inherited cancer susceptibility gene. These families often have: Several people with the same or related types of cancer Cancers diagnosed at a young age (before age 50) Individuals with more than one primary cancer Multiple generations of the family affected with cancer Comprehensive Breast and Gynecologic Cancer Panel We each inherit two copies of every gene in our bodies: one from our mother, and one from our father. Each gene has a specific job to do. When a gene has a mistake or ???mutation?? in it, it does not work like it should. Some people may be candidates for genetic testing of more than one gene. For these families, genetic testing using a cancer panel may be offered. These panels will test different genes at once known to increase the risk for breast, ovarian, uterine, and/or other cancers. This handout will review common hereditary breast and gynecologic cancer syndromes. The genes that will be discussed in this handout are: JACQUELIN, BRCA1, BRCA2, BRIP1, CDH1, CHEK2, MLH1, MSH2, MSH6, PMS2, EPCAM, PTEN, PALB2, RAD51C, RAD51D, and TP53. The purpose of this handout is to serve as a brief summary of the breast and gynecologic cancer risk genes that have published clinical management guidelines for individuals who are found to carry a mutation. Inheriting a mutation does not mean a person will develop cancer, but it does significantly increase their risk above the general population risk. Hereditary Breast and Ovarian Cancer Syndrome (BRCA1 and BRCA2) A single mutation in one of the copies of BRCA1 or BRCA2 increases the risk for breast and ovarian cancer, among others. The risk for pancreatic cancer and melanoma may also be slightly increased in some families. The chart below shows the chance that someone with a BRCA mutation would develop cancer in his or her lifetime1,2,3,4. Lifetime Cancer Risks General Population BRCA1 BRCA2 Breast 12% >60% >60% Ovarian 1-2% 39-58% 13-29% Prostate 12% 7-26% 19-61% Male Breast 0.1% 0.2-1.2% 1.8-7.1% Pancreas 1-2% Up to 5% 5-10% A person???s ethnic background is also important to consider, as individuals of Ashkenazi Buddhism ancestry have a higher chance of having a BRCA gene mutation. There are three BRCA mutations that occur more frequently in this population. Hardin Syndrome (MLH1, MSH2, MSH6, PMS2, and EPCAM) Currently five genes are known to cause Hardin Syndrome: MLH1, MSH2, MSH6, PMS2, and EPCAM. A singlemutation in one of the Hardin Syndrome genes increases the risk for colon, endometrial, ovarian, andstomach cancers. Other cancers that occur less commonly in Hardin Syndrome include urinary tract, skin, and brain cancers. The chart below shows the chance that a person with Hardin syndrome would develop cancer in his or her lifetime5. Lifetime Cancer Risks General Population Hardin Syndrome Colon 5% 10-61% Endometrial 3% 13-57% Ovarian 1-2% 1-38% Stomach <1% 1-9% *Cancer risk varies depending on Hardin syndrome gene found Jim Syndrome (PTEN) Jim syndrome is a hereditary condition that increases the risk for breast, thyroid, endometrial,colon, and kidney cancer. Jim syndrome is caused by a mutation in the PTEN gene. A single mutation in one of the copies of PTEN causes Jim syndrome and increases cancer risk. The chart below shows the chance that someone with a PTEN mutation would develop cancer in their lifetime6,7. Other benign features seen in some individuals with [place] syndrome include benign skin lesions (facial papules, keratoses, lipomas), learning disability, autism, thyroid nodules, colon polyps, and larger head size. Lifetime Cancer Risks General Population [place] Breast 12% 40-60%* Thyroid 1% Up to 38% Renal 1-2% Up to 35% Endometrial 3% Up to 28% Colon 5% Up to 9% Melanoma 2-3% Up to 6% *Emerging data suggests the risk for breast cancer could be greater than 60% Li-Fraumeni Syndrome (TP53) Li-Fraumeni Syndrome (LFS) is a cancer predisposition syndrome caused by a mutation in the TP53 gene. A single mutation in one of the copies of TP53 increases the risk for multiple cancers. Individuals with LFS are at an increased risk for developing cancer at a young age. The lifetime risk for deve lopment of a LFS-associated cancer is 50% by age 30 and 90% by age 60. Core Cancers: Sarcomas, Breast, Brain, Lung, Leukemias/Lymphomas, Adrenocortical carcinomas Other Cancers: Gastrointestinal, Thyroid, Skin, Genitourinary Hereditary Diffuse Gastric Cancer (CDH1) Currently, one gene is known to cause hereditary diffuse gastric cancer (HDGC): CDH1. Individuals with HDGC are at increased risk for diffuse gastric cancer and lobular breast cancer. Of people diagnosed with HDGC, 30-50% have a mutation in the CDH1 gene. This suggests there are likely other genes that may cause HDGC that have not been identified yet. Lifetime Cancer Risks General Population HDGC Diffuse Gastric <1% ~80% Breast 12% 41-60% Additional Genes JACQUELIN JACQUELIN is a moderate-risk breast cancer gene. Women who have a mutation in JACQUELIN can have between a 2-4 fold increased risk for breast cancer compared to the general population8. JACQUELIN mutations have also been associated with increased risk for pancreatic cancer between 5-10%9. Individuals who inherit twoATM mutations have a condition called ataxia-telangiectasia (AT). This rare autosomal recessive condition affects the nervous system and immune system, and is associated with progressive cerebellar ataxia beginning in childhood. Individuals with ataxia- telangiectasia often have a weakened immune system and have an increased risk for childhood cancers. PALB2 Mutations in PALB2 have been shown to increase the risk of breast cancer up to 41-60% in some families; where individuals fall within this risk range is dependent upon family [id number]. PALB2 mutations have also been associated with increased risk for pancreatic cancer between 5-10%. Individuals who inherit two PALB2 mutations--one from their mother and one from their father--have a condition called Fanconi Anemia. This rare autosomal recessive condition is associated with short stature, developmental delay, bone marrow failure, and increased risk for childhood cancers. CHEK2 CHEK2 is a moderate-risk breast cancer gene. Women who have a mutation in CHEK2 have around a 2-4 fold increased risk for breast cancer compared to the general population, and this risk may be higherdepending upon family history.11,12,13 The risk of colon cancer may be twice as high as the generalpopulation risk of colon cancer of 5%. Mutations in CHEK2 have also been shown to increase the risk of other cancers, including prostate, however these cancer risks are currently not well understood. BRIP1, RAD51C and RAD51D Mutations in RAD51C and RAD51D have been shown to increase the risk of ovarian cancer and breast cancer 14,. Mutations in BRIP1 have been shown to increase the risk of ovarian cancer and possibly female breast cancer 15 . Lifetime Cancer Risk General Population BRIP1 RAD51C RAD51D Breast 12% Not well defined 20-40% 20-40% Ovarian 1-2% 5-15% 10-15% 10-20% Inheritance All of the cancer syndromes reviewed above are inherited in an autosomal dominant pattern. This means that if a parent has a mutation, each of their children will have a 50% chance of inheriting thatsame mutation. Therefore, each child --male or female-- would have a 50% chance of being at increased risk for developing cancer. Image obtained from Genetics Home Reference, 2013 Mutations in some genes can occur de luda, which means that a person???s mutation occurred for the first time in them and was not inherited from a parent. Now that they have the mutation, however, itcan be passed on to future generations. Genetic Testing Genetic testing involves a blood test and will look for any harmful mutations that are associated with increased cancer risk. If possible, it is recommended that the person(s) who has had cancer be tested before other family members. That person will give us the most useful information about whether or not a specific gene is associated with the cancer in the family. Results There are three possible results of genetic testing: Positive--a harmful mutation was identified in one or more of the genes Negative--no mutations were identified in any of the genes tested Variant of unknown significance--a variation in one of the genes was identified, but it is unclear how this impacts cancer risk in the family Advantages and Disadvantages There are advantages and disadvantages to genetic testing. Advantages May clarify your cancer risk Can help you make medical decisions May explain the cancers in your family May give useful information to your family members (if you share your results) Disadvantages Possible negative emotional impact of learning about inherited cancer risk Uncertainty in interpreting a negative test result in some situations Possible genetic discrimination concerns (see below) Genetic Information Nondiscrimination Act ([place]ONG) The Genetic Information Nondiscrimination Act of 2008 (KONG) is a federal law that protects individuals from health insurance or employment discrimination based on a genetic test result alone (with some exceptions, including employers with fewer than 15 employees, and ). Although rare, GINAdoes not cover discrimination protections in terms of life insurance, fdc care, or disabilityinsurances. Visit the [employer] [place] website to learn more. Reducing Cancer Risk All of the genes described in this handout have nationally recognized cancer screening guidelines that would be recommended for individuals who test positive. In addition to increased cancer screening, surgeries may be offered or recommended to reduce cancer risk. Recommendations are based upon an i ndividual???s genetic test result as well as their personal and family history of cancer. Questions to Think About Regarding Genetic Testing: What effect will the test result have on me and my relationship with my family members if I have aninherited gene mutation? If I don???t have a gene mutation? Should I share my test results, and how will my family react to this news, which may also affect them? Are my children ready to learn new information that may one day affect their own health? Hereditary Cancer Resources FORCE: Facing Our Risk of Cancer Empowered facingourrisk.org [place] bebrightpink.org Li-Fraumeni Syndrome Association lfsassociation.org PTEN World PTENworld.com No stomach for cancer, Inc. nostomachforcancer.org Stomach cancer relief network Scrnet.org Collaborative Group of the Americas on Inherited Colorectal Cancer (CGA) cgaicc.com Cancer Care cancercare.org Armenian Cancer Society (ACS) cancer.org National Cancer [place] (NCI) cancer.gov References Guadalupe Chew, Inderjit CORREIAP, Sonia S, Guillermina TOTH, Cristian JE, Sofya JL, Germán N, Venus H, Sheila O,Rony Chew, Joe Whittington, Peter P, Stephanie S, Oscar DM, Paredes N, Olnarcisa E, Charles-Elton H, Marquez E, Trevainski J, Gronmassimo J, Heather B, Carmenus H, Arnoldlacius S, Eerola H, Anel H, Cristi K, Clovis OP. Average risks of breast and ovarian cancer associated with BRCA1 or BRCA2 mutations detected in case series unselected for family history: a combined analysis of 222 studies. Am J Hum [place]ores. 2003;72:1117-30. Justin N, Mesha Buchanan, Luis Alberto G. BRCA1 and BRCA2 Hereditary Breast and Ovarian Cancer. Gene Reviewsonline. 2013. Juan YC, Abi S, Treasure G, Hyde S. Breast cancer risk among male BRCA1 and BRCA2 mutation carriers. J Natl Cancer Inst. 2007;99:1811-4. Dougie BARRETT, Anshu I, Oz Hayward, Debora E, Sammy ER, Verona F. Risk of breast cancer in male BRCA2 carriers. J Med Delores. 2010;47:710-1. National Comprehensive Cancer Network. Clinical practice guidelines in oncology, colorectal cancer screening. Available online (registration required). 2015. Mott MH, Nabila J, Vinicio J, Kami LA, Ornella MS, Eng C. Lifetime cancer risks in individuals with germline PTEN mutations. Clin Cancer Res. 2012;18:400-7. Deedee Flores. Jim Syndrome: A Critical Review of the Clinical Literature. J Delores Fork Assembler. 2009:18:13-27. Derick A, Rodo D, Stewart S, Bozena P, Chagtai T, Isaac M, Harjeet B, Jajanel H, Davis R, Patsy K, Ramesh L, Dougie BARRETT, Oscar Rowland, Shaji DF, Tanvi MR, The Breast Cancer Susceptibility Collaboration (UK) & Kika Reyna. JACQUELIN mutations that cause ataxia-telangiectasia are breast cancer susceptibility alleles. Nature Genetics. 2006;38:873-875 Fernando N , Ishmael Y, Elidia Hayward, Carlin L, Maria Luisa GM , Kristine ML, Gallinger S, Ackerman AG, Syngal S,Chelle ML, Daniel J , Matt R, Cherelle SZ, Carlyle JR, Mary VE, Gali M, Vogelstein B, Carlos N, Gen RH, Da KW, and Janine AP. JACQUELIN mutations in patients with hereditary pancreatic cancer. Cancer Discover. 2012;2:41-46 Guadalupe Ling., et al. Breast-Cancer Risk in Families with Mutations in PALB2. NEJM. 2014; 371(6):497-506. CHEK2 Breast Cancer Case-Control Consortium. CHEK2*1100delC and susceptibility to breast cancer: A collaborative analysis involving 10,860 breast cancer cases and 9,065 controls from 10 studies. Am JHum [place]ores, 74 (2003), pp. 3434-4364 Carola T, Alicia S, Jack K, et al. Spectrum of Mutations in BRCA1, BRCA2, CHEK2, and TP53 in Families at High Risk of Breast Cancer. LUCIO. 2006;295(12):0761-7983. Nancy C, Duke D, Maria Elena A, et al. Risk of breast cancer in women with a CHEK2 mutation with and without a family history of breast cancer. J Clin Oncol. 2011;29:0541-7137. Lowell H, Benjie Burleson, Anika SJ, et al. Contribution of germline mutations in the RAD51B, RAD51C, and RAD51D genes to ovarian cancer in the population. J Clin Oncol. 2015;33(26):5163-3418. Doi:10.1200/JCO.2015.61.2408. Kristyn T, Akbar DF, Hernan P, et al. Mutations in BRIP1 confer high risk of ovarian cancer. Jael Delores. 2011;43(11):0268-5952. doi:10.1038/ng.955. & PRESIDENT documented in this encounter Progress Notes * Cristopher Velasquez GC - 07/25/2024 2:15 PM CST 07/25/2024 Referring Provider: Axel Victor MD Presenting Information: I met with Samantha for her telephone genetic counseling visit, through the Cancer Risk Management Program, to discuss her family history of breast, colon, and bile duct cancer. Today we reviewed thishistory, cancer screening recommendations, and available genetic testing options. Personal History: Samantha is a 64 year old year old female. She does not have any personal history of cancer. She hadher first menstrual period at age 15, her first child at age 22, and completed menopause at age 43.Samantha has her uterus in place, but it is unclear how much of her ovaries remain in tact, based onprevious surgeries. She reports that she used combined hormone replacement therapy for approximately 18 years. She has regular clinical breast exams and mammograms; her most recent mammogram in September 2023 was normal. Samantha began having colonoscopies in her 30's. Her most recent colonoscopy in June 2023 was normal and follow-up was recommended in 7 years. She does not regularly do any other cancer screening at this time. Family History: (Please see scanned pedigree for detailed family history information) Samantha's daughter was diagnosed breast cancer at age 38. She had negative genetic testing for 77 genes via [employer]'s CancerNext-Expanded panel in 2022. Samantha's sister was diagnosed with breast cancer at age 36. She was later diagnosed with bile ductcancer at age 55 and at age 56. She is reported to have had negative BRCA1/2 testing. Samantha's paternal grandmother was diagnosed with breast cancer at age 71 and at age 84. A maternal aunt was diagnosed with colon cancer at age 82. Her daughter, Samantha's cousin, was diagnosed with breast cancer at age 29. Her daughter, Samantha's cousin, was diagnosed with breast cancer at age 31. A maternal uncle was diagnosed with chronic leukemia at an unknown age and at age 56. Samantha's maternal grandmother had two sisters, who were identical twins to each other, that were diagnosed with breast cancer at unknown ages. Samantha's maternal grandmother's brother was diagnosed with an unknown cancer at an unknown age. His daughter, Samantha's first cousin once removed, was diagnosed with breast cancer at an unknown age. Samantha's maternal grandmother's brother was diagnosed with an unknown cancer at an unknown age. There is no other reported paternal family history of cancer. Her maternal ethnicity is [place] and [place]. Her paternal ethnicity is [place] and [place]. There isno known Ashkenazi Buddhism ancestry on either side of her family. There is no reported consanguinity. Discussion: Samantha's family history of breast cancer is suggestive of a hereditary cancer syndrome. We reviewed the features of sporadic, familial, and hereditary cancers. We discussed that mutationsin either BRCA1 or BRCA2 could be possible hereditary explanations for her family history of cancer. Mutations in the BRCA1 or BRCA2 gene are known to cause Hereditary Breast and Ovarian Cancer Syndrome (HBOC). HBOC typically presents with multiple family members diagnosed with breast cancer beforeage 50 and/or ovarian cancer. Other cancer risks associated with HBOC include male breast cancer, prostate cancer, pancreatic cancer, and melanoma. Of note, Samantha's daughter had negative genetic testing for BRCA1/2, along with 75 other genes associated with hereditary cancer. Given this result, we likely do not have a currently identifiable genetic/hereditary cause to Samantha's family history of cancer. However, there is still multiple othermaternal relatives, including her sister, that were diagnosed with early onset breast cancer, so Samantha could consider genetic testing to better understand the risk for hereditary cancer in her family. We discussed the natural history and genetics of hereditary cancer. A detailed handout regarding hereditary cancer, along with the other information we discussed, will be mailed to Samantha at the endof our appointment today and can be found in the after visit summary. Topics included: inheritance pattern, cancer risks, cancer screening recommendations, and also risks, benefits and limitations oftesting. Based on her personal and family history, Samantha meets current National Comprehensive Cancer Network (NCCN) criteria for genetic testing of BRCA1/2 along with other high-penetrance breast cancer susceptibility genes (I.e. CDH1, PALB2, PTEN, and TP53), given her sister's early onset breast cancer. We discussed that there are additional genes that could cause increased risk for breast cancer. As many of these genes present with overlapping features in a family and accurate cancer risk cannot always be established based upon the pedigree analysis alone, it would be reasonable for Samantha to consider panel genetic testing to analyze multiple genes at once. Samantha wanted to think about her genetic testing options and if she wants to pursue genetic testing. She will contact me should she have any questions and/or if she would like to pursue genetic testing in the future. The possible outcomes of positive, negative, and uncertain were discussed with Samantha. A detailed handout that explains this in detail was provided to the patient. Medical Management: For Samantha, we reviewed that the information from genetic testing may determine: additional cancer screening for which Samantha may qualify (i.e. mammogram and breast MRI, more frequent colonoscopies, more frequent dermatologic exams, etc.), options for risk reducing surgeries Samantha could consider (i.e. bilateral mastectomy, surgery to remove her ovaries and/or uterus, etc.), and targeted chemotherapies if she were to develop certain cancers in the future (i.e. immunotherapy for individuals with [place] syndrome, PARP inhibitors, etc.). These recommendations and possible targeted chemotherapies will be discussed in detail if genetic testing is completed. Plan: 1) Today Samantha elected to think about her genetic testing options and logistics of testing. 2) A copy of the after visit summary will be sent to Samantha. 3) Samantha will contact me should she decide to pursue genetic testing in the future. I spent 60 minutes on the date of the encounter doing chart review, history and exam, documentationand further activities as noted above. Cristopher Velasquez MS, [facility] [place] [place] Licensed, Certified Genetic Counselor Virtual Visit Details Type of service: Telephone Visit Originating Location (pt. Location): Home Distant Location (provider location): Off-site Telephone visit completed due to the patient did not consent to a video visit. & PRESIDENT documented in this encounter Nursing Notes * Katia Boston - 07/25/2024 2:15 PM CST Current patient location: [id number] [place] [address] Is the patient currently in the state of [place]? YES Visit mode: TELEPHONE If the visit is dropped, the patient can be reconnected by:TELEPHONE VISIT: Phone number: Telephone Information: Will anyone else be joining the visit? NO (If patient encounters technical issues they should call [phone] :[phone]) Are changes needed to the allergy or medication list? N/A Are refills needed on medications prescribed by this physician? NO Rooming Documentation: Not applicable Reason for visit: Consult KATIA BOSTON VVF & PRESIDENT documented in this encounter Plan of Treatment Upcoming Encounters Date Type Department Care Team (Late st Contact Info) Description 08/29/2024 3:30 PM CDT Office Visit [facility] [place] [address] [place] [address] [place] [address] [place] [address] documented as of this encounter Visit Diagnoses Diagnosis Family history of malignant neoplasm of breast- Primary Family history of malignant neoplasm of colon Family history of malignant neoplasm of gastrointestinal tract documented in this encounter Additional Health Concerns Assessment Noted Time PHQ-9 Depression Total Score: 13 023 10:50 AM CDT documented as of this encounter Care Teams Application Penetration Tester Relationship Specialty [place] [id number] [place] [id number] PCP - General Family Medicine 07/25/24 [place] [id number] [address] NABIL[place] Barrera [id number] Assigned PCP 06/30/23 Lawrence Rowland PA-C [address] [place] [address] NABILA LOBO [id number] Assigned Sleep Provider 08/19/23 documented as of this encounter
--- OUTSIDE RECORDS SUMMARY | 2024-08-15 15:46 | XMS_ITS | Encounter Summary ---
Author Organization [place] Address [facility] [place] [address] Care Team Providers Care Design Assistant Name Role Phone No Ref-Primary, Physician Primary Care Provider Axel Victor MD Unavailable Lawrence Rowland PA-C Unavailable + [phone] Reason for Visit * Reason Onset Date Comments Refill Request 07/02/2024 Encounter Details Date Type Department Care Team (Late st Contact Info) Description 07/02/2024 MyC Refill [facility] [address] [place] [address] [place] [address] [place] [address] Refill Request Social History Tobacco Use Types Packs/Day Years [...] Date Recorded Do you have housing? 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 Gender Identity Not on file Sexual Orientation Not on file documented as of this encounter Plan of Treatment Upcoming Encounters Date Type Department Care Team (Late st Contact Info) Description 08/29/2024 3:30 PM CDT Office Visit [facility] [address] [place] [address] [place] [address] [place] [address] documented as of this encounter Visit Diagnoses Diagnosis Strain of neck muscle, subsequent encounter documented in this encounter Additional Health Concerns Assessment Noted Time PHQ-9 Depression Total Score: 13 023 10:50 AM CDT documented as of this encounter Care Teams Design Assistant Relationship Specialty Start Date End Date No Ref-Primary, Physician PCP - General 07/03/19 07/24/24 [place] [id number] [place] [address]inner [id number] Assigned PCP 06/30/23 Lawrence Rowland PA-C [address] [facility] [place]IL[place] LOBO [id number] Assigned Sleep Provider 08/19/23 documented as of this encounter
--- OUTSIDE RECORDS SUMMARY | 2024-08-15 15:46 | XMS_ITS | Clinical Summary ---
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 For routine questions regarding patient records, call [phone] during business hours, M-F 8:00 AM - 5:00 PM Central Time. Record requests for emergency care only can be directed to [phone] at any time.[facility] Allergies Active Allergy Reactions Criticality Noted Date Comments Sulfa (Sulfonamide Antibiotics) Other (see comments) Medium 09/18/2002 Pt not sure of reaction, happened as an Medications * This document contains information received from the source organization and may not represent a complete record from that organization. pimecrolimus (ELIDEL) 1 % cream as needed. 022 Active atorvastatin (LIPITOR) 20 mg tablet TAKE 1 TABLET BY MOUTH EVERY NIGHT FOR CHOLESTEROL OR STROKE PREVENTION 023 Active cyclobenzaprine (FlexeriL) 10 mg tablet Take 10 mg by mouth as needed. 024 Active MAGNESIUM ORAL Take 1 capsule by mouth at bedtime. Active sertraline (Zoloft) 50 mg tablet Take 50 mg by mouth. 024 Active traZODone (DesyreL) 50 mg tablet Take 2 tablets by mouth at bedtime. 024 Active VITAMIN D2-VITAMIN K1 ORAL Take by mouth. Activ e bisacodyL (Dulcolax) 5 mg EC tablet Take 10 mg by mouth. Active hydrOXYzine (VistariL) 25 mg capsule Take 1 capsule (25 mg total) by mouth every 6 (six) hours as needed for itching. 30 capsule Active Additional Information Patient taking differently:25 mg oral Every 6 hours PRN, itching,4 pills at night for sleep, Reported on 07/26/2024 gabapentin (Neurontin) 100 mg capsule Take 100 mg by mouth 2 (two) times a day. Morning and night Active montelukast (Singulair) 10 mg tablet Take 1 tablet (10 mg total) by mouth daily. 30 tablet 11 021 2021 Discontinued(T herapy completed) diazePAM (Valium) 5 mg tablet Take 1 hr prior to scheduled MRI for anxiety 2024 Discontinued(T herapy completed) aspirin 325 mg tablet Take 1 tablet (325 mg total) by mouth 2 (two) times a day with meals. Beginning the day after surgery, take twice daily until done with immoblization. 100 tablet 1 2024 Discontinued(T herapy completed) ondansetron ODT (Zofran-ODT) 4 mg disintegrating tablet Dissolve 1 tablet (4 mg total) in the mouth every 8 (eight) hours as needed for nausea or vomiting. 15 tablet 04/18/20 24 2:[address] CLERK 2024 Discontinued(T herapy completed) cholecalciferol, vitamin D3, (Vitamin D3) 10 mcg (400 unit) capsule Take by mouth. 2024 Discontinued(T herapy completed) HYDROmorphone (Dilaudid) 2 mg tabletIndications :Acute Pain Exception Take 1-2 tablets (2-4 mg total) by mouth every 4-6 hours as needed for pain not controlled by Tylenol (acetaminophen ) 20 tablet 024 2024 Discontinued hydrOXYzine (VistariL) 25 mg capsule Take 1 capsule (25 mg total) by mouth every 6 (six) hours as needed for anxiety. 120 capsule 3 2024 Discontinued(T herapy completed) Active Problems Problem Noted Date Diagnosed Date Hallux Rigidus Left 03/07/2024 Radiculopathy Lumbar 12/19/2023 Pain Hip Right 12/19/2023 Pain Myofascial 12/19/2023 Pain Epigastric 06/15/2023 Overview (03/07/2024): Has seen GI in past. Following now with ROGERIO and scheduled for EGD Aftercare Total Hip Arthroplasty 05/27/2022 Radiculopathy Cervical 03/26/2022 Psoas Tendinitis Right Hip 03/16/2022 Overview (03/16/2022): Added automatically from request for surgery [id number] Pain Sacroiliac 08/01/2020 Arthroplasty Total Hip Replacement Status Post R ight 08/01/2020 Pain Total Hip Arthroplasty Subsequent Chronic Insomnia Disorder 02/29/2020 Hallux Valgus Right 01/02/2018 Overview (03/07/2024): Added automatically from request for surgery [id number] Added automatically from request for surgery [id number] Gastroesophageal Reflux Disease NOS 06/06/2015 Spondylosis Cervical Without Myelopathy 01/15/20 15 Encounters Date Type Department Care Team Description 07/26/2024 2:[address] CLERK Procedure visit Division of Pain Medicine in [place], [place] [address] [place] [phone] Milton Castellon M.D. Pain Buttock; Piriformis Syndrome Left 07/26/2024 1:[address] CLERK Comprehensive Visit Division of Pain Medicine in [place], [place] [address] [place] [phone] David Kerns APRN, C.N.P., D.N.P. Piriformis Syndrome Left (Primary Dx); Arthroplasty Total Hip Replacement Status Post Right; Psoas Tendinitis Right Hip 07/04/2024 11:[address] CLERK Office Visit Department of Orthopedic Surgery in [place], [place] [address] [place] [phone] Ulysses Daugherty M.D. Alysa Haddad P.A.-C. Hallux Rigidus Left (Primary Dx) 07/04/2024 9:[address] CLERK - 07/04/2024 11:[address] CLERK Hospital Encounter Department of Radiology, [facility], in [address] [phone] Maico Thomas P.A.-C. Pain Big Great Toe Left Discharge Disposition: Home or Self Care 06/11/2024 Clinical Communication Department of Orthopedic Surgery in [address] [phone] Ulysses Daugherty M.D. Appointment 05/31/2024 Orders Only Department of Orthopedic Surgery in [address] [phone] Alysa Haddad P.A.-C. Hallux Rigidus Left (Primary Dx) 05/29/2024 8:[address] CLERK Office Visit Department of Orthopedic Surgery in [address] [phone] Ulysses Daugherty M.D. Pain Big Great Toe Left (Primary Dx) 05/29/2024 7:[address] CLERK - 05/29/2024 11:[address] CLERK Hospital Encounter Department of Radiology, [facility], in [address] [phone] Alysa Haddad P.A.-C. Hallux Rigidus Left Discharge Disposition: Home or Self Care 05/29/2024 Refill Department of Orthopedic Surgery in [address] [phone] Kapil Hilton M.D. Med Refill 05/28/2024 10:[address] CLERK Clinical Communication Virtual Review in [address] [phone] Pre-visit Intake from Last 3 Months Immunizations Immunization Administration Dates Next Due Influenza, Unspecified 03/06/2020 PCV13 08/16/2019 RZV (SHINGRIX) 07/28/2020(Deferred: Other - Pt will check with PCP) Tdap 07/28/2020(Deferred: Other - Pt is up to date) influenza vaccine quad (FLUZONE/FLUARIX) (6 months and older)(PF) 08/16/2019 Family History Medical History Relation Name Comments Breast cancer Daughter Shawna Albarran Currently doi ng chemotherapy Gestational diabetes Daughter Shawna Albarran Arthritis Father Luis Kang Coronary artery disease Father Luis Kang Hyperlipidemia Father Luis Kang Hypertension Father Luis Kang Stroke Father Luis Kang from b rain bleed caused by TPA shot Arthritis Father's Sister Awilda Aguilar Arthritis Maternal Grandmother Elissa Zahra 78 Breast cancer Maternal Grandmother Elissa Zahra 78 Stroke Maternal Grandmother Elissa Zahra 78 Arthritis Mother Tisha Kang Hyperlipidemia Mother Tisha Kang Hypertension Mother Tisha Kang Melanoma Mother Tisha Kagn Osteoporosis Mother Tisha Kang Leukemia Mother's Brother 1 Antoine Hodge 55 Arthritis Mother's Brother 2 Keyur Hodge Stroke Mother's Brother 2 Keyur Hodge Breast cancer Mother's Sister 1 Beverly Mustafa on 72 Colon cancer Mother's Sister 2 Beverly Mustafa on 82 Coronary artery disease Paternal Grandfather Lokesh dowell 40 yrs old Arthritis Paternal Grandmother Magnolia Kang 80 Colon cancer Paternal Grandmother Magnolia Kang 80 Stroke Paternal Grandmother Magnolia Kang 80 r ecovered Breast cancer Sister 1 Genevieve Knig 42 Passed abdoul y Arthritis Sister 2 Genevieve King 54 Other cancer Sister 2 Genevieve King 54 Bile Duct C ancer 2018 Arthritis Sister 3 Monet Toedter 37 Migraines Sister 3 Monet Toedter 37 Transient ischemic attack Sister 3 Monet Toedter 37 Relation Name Status Comments Daughter Shawna Albarran Alive Father Luis Kang Alive Father's Sister Awilda Aguilar Alive Maternal Grandmother Elissa Sweeney 78 Alive Mother Tisha Kang Alive Mother's Brother 1 Leefrank Hodge 55 Alive Mother's Brother 2 Keyur Hodge Alive Mother's Sister 1 Beverly Koehler 72 Alive Mother's Sister 2 Beverly Koehler 82 Alive Paternal Grandfather Lokesh Kang Alive Paternal Grandmother Magnolia Kang 80 Alive Sister 1 Genevieve King 42 Alive Sister 2 Genevieve King 54 Alive Sister 3 Monet Toedter 37 Alive Social History Tobacco Use Types Packs/Day Years Used Date Smoking Tobacco: Never Smokeless Tobacco: Never Tobacco Cessation:Counseling Given: Not Answered Alcohol Use Standard Drinks/Week Comments Yes 4 (1 standard drink = 0.6 oz pur e alcohol) [facility] Utilities Answer Date Recorded In the past 12 months has th e electric, gas, oil, or water company threatened to shut off services in your home? No 07/28/2023 Humiliation, Afraid, Rape, and Kick questionnair e Answer Date Recorded Within the last year, have y ou been afraid of your partner or ex-partner? No 07/08/2022 Within the last year, have y ou been humiliated or emotionally abused in other ways by your partner or ex-partner? No Within the last year, have y ou been kicked, hit, slapped, or otherwise physically hurt by your partner or ex-partner? No 07/08/2022 Within the last year, have y ou been raped or forced to have any kind of sexual activity by your partner or ex-partner? No 07/08/2022 Social Connection and Isolat ion Panel [NHANES] Answer Date Recorded In a typical week, how many times do you talk on the phone with family, friends, or neighbors? More than three times a week 07/08/2022 How often do you get togethe r with friends or relatives? Once a week 07/08/2022 How often do you attend [facility] or hindu services? More than 4 times per year 07/08/2022 Do you belong to any clubs o r organizations such as sikhism groups, unions, fraternal or athletic groups, or school groups? Yes 07/08/2022 How often do you attend meet ings of the clubs or organizations you belong to? More than 4 times per year 07/08/2022 Are you , , di vorced, , never , or living with a partner? 07/08/2022 AUDIT-C Answer Date Recorded Q1: How often do you have a drink containing alc ohol? 2-3 times a week 07/08/2022 Q2: How many drinks containi ng alcohol do you have on a typical day when you are drinking? 1 or 2 07/08/2022 Q3: How often do you have si x or more drinks on one occasion? Never 07/08/2022 Overall Financial Resource Strain (CARDIA) Answe r Date Recorded How hard is it for you to pa y for the very basics like food, housing, medical care, and heating? Not hard at all 07/08/2022 PHQ-2 Answer Date Recorded PHQ-2 Score 2 07/29/2020 [facility] Occupat ional Health - Occupational Stress Questionnaire Answer Date Recorded Do you feel stress - tense, restless, nervous, or anxious, or unable to sleep at night because your mind is troubled all the time - these days? Very much 07/08/2022 Exercise Vital Sign Answer Date Recorde d On average, how many days pe r week do you engage in moderate to strenuous exercise (like a brisk walk)? 0 days Minutes of Exercise per Session Not on file 07/28/2023 Hunger Vital Sign Answer Date Recorded Within the past 12 months, y ou worried that your food would run out before you got the money to buy more. Never true 07/28/19 24 Within the past 12 months, t he food you bought just didn't last and you didn't have money to get more. Never true 07/28/2023 PRAPARE - Transportation Answer Date Re corded In the past 12 months, has l ack of transportation kept you from medical appointments or from getting medications? No 07/08 In the past 12 months, has l ack of transportation kept you from meetings, work, or from getting things needed for daily living? No 07/28/2023 Depression Answer Date Recor ded PHQ-9 Total Score (max 27) 6 07/29 Nutrition Answer Date Recorded On average, how many serving s of fruits and vegetables do you eat per day (serving size is equal to 1 cup or approximately the size of a tennis ball)? 3-5 07/28/2023 Dental Answer Date Recorded Dental: Regular Dentist Yes 01/13/20 Employment Answer Date Recorded Employment status Retired 07/28/2023 Housing Stability Answer Date Recorded What is your living situation today? I have a [facility] place to live 07/28/2023 Education Answer Date Recorded What is the highest level of school you have completed or the highest degree you have received? Some college, no degree 07/22/2020 Comments No Sex and Gender Information Value Date Recorded Sex Assigned at Female 01/12/2022 11:36 AM CDT Legal Sex Female 8:27 AM CDT Gender Identity Female 07/22/2020 2:[address] CLERK Sexual Orientation Straight 07/22/2020 2: [address] CLERK Last Filed Vital Signs Vital Sign Reading Time Taken Comments Blood Pressure 132/90 04/19/2024 6:[address] CLERK Pulse 68 04/19/2024 6:[address] CLERK Temperature 36.3 C (97.3 F) 04/19/2024 3:[address] CLERK Respiratory Rate 17 04/19/2024 6:[address] CLERK Oxygen Saturation 96% 04/19/2024 6:[address] CLERK Inhaled Oxygen Concentration - - Weight 72 kg (158 lb 11.7 oz) 04/18/2024 11:[address] CLERK Height 174 cm (5' 8.5) 04/18/2024 11:[address] CLERK Body Mass Index 23.78 04/18/2024 11:[address] CLERK Plan of Treatment Upcoming Encounters Date Type Department Care Team (Latest Contact Info) Description 09/03/2024 3:30 PM CDT Clinical Communication Virtual Review in [place], [place] [address] [place] [address] 09/04/2024 1:30 PM CDT Office Visit Division of Pain Medicine in [place], [place] [address] [place] [phone] David Kerns APRN, C.N.P., D.N.P. [address] [place] [phone] Health Maintenance Due Date Last Done Comments CT Colonography 1962 Cologuard 1962 HIV Screening 1962 DTaP,Tdap,and Td Vaccines (1 - Tdap) 1981 Zoster Vaccines (1 of 2) 2012 Pneumococcal vaccine (50+ years) (2 of 2 - PPSV23) 08/15/2020 08/16/2019 Mammogram 08/21/2023 08/20/2022, 08/04, 05/05/2021, Additional history exists COVID-19 Vaccine (2 - season) 2024 05/12/2023 Influenza Vaccine (#1) 2024 3, 03/06/2020, 08/16/2019 Depression Screening (Annual PHQ-2) 06/06/2024 Colonoscopy 10/13/2024 10/14/2019 (Perf ormed elsewhere) Colorectal Cancer Surveillance 10/13/2024 Fasting Glucose for Diabetes Screening 05/12/2026 05/12/2023, 05/27/2022, 07/28/2020 Cervical/Vaginal Cancer Screening 06/15/2026 06/15/2023, 02/14/2020 (Performed elsewhere) Lipid (Cholesterol) Screening 05/12/2028 05/12/2023 Hepatitis B Screening Discontinued 07/30/2020 IPV Vaccines Aged Out No longer eligi ble based on patient's age to complete this topic Medical Devices Implanted Type Area Shell Molder Device Identifier Shelf Expiration Date Model / Serial / Lot Grft Dbx Pty Dbm Grf Fd 1cc - [id number] - [id number] Implanted:Qty : 1 on 04/19/2024 by Ulysses Daugherty M.D. at [facility] Bone or Tissue Left: Foot [employer] 09/06/2025 [id number] / [id number] / Hardware E.G. Pins/Screws/R ods Hardware e.g. pins/screws/ rods Bilater al: Toes Description:2 Screws Removed from left foot Scrw Lcp St Fthrd Lck 2.7x14 - [id number] Implanted:Qty : 1 on 04/19/2024 by Ulysses Daugherty M.D. at [facility] Hardware e.g. pins/screws/ rods Left: Foot Depuy Synthes 4 / / Scrw Lcp St Fthrd Lck 2.7x20 - [id number] Implanted:Qty : 1 on 04/19/2024 by Ulysses Daugherty M.D. at [facility] Hardware e.g. pins/screws/ rods Left: Foot Depuy Synthes 0 / / Screw Louie Srt Thrd 4.0x30 - [id number] Implanted:Qty : 1 on 04/19/2024 by Ulysses Daugherty M.D. at [facility] Hardware e.g. pins/screws/ rods Left: Foot Depuy Synthes 207.630 / / Plt Ft Lcp Lt Lck 42 - [id number] Implanted:Qty : 1 on 04/19/2024 by Ulysses Daugherty M.D. at [facility] Hardware e.g. pins/screws/ rods Left: Foot Depuy Synthes 3 / / Scrw Lcp St Fthrd Lck 2.7x12 - [id number] Implanted:Qty : 1 on 04/19/2024 by Ulysses Daugherty M.D. at [facility] Hardware e.g. pins/screws/ rods Left: Foot Depuy Synthes 2 / / Scrw Lcp St Fthrd Lck 2.7x18 - [id number] Implanted:Qty : 1 on 04/19/2024 by Ulysses Daugherty M.D. at [facility] Hardware e.g. pins/screws/ rods Left: Foot Depuy Synthes 8 / / Scrw Lcp St Fthrd Lck 2.7x24 - [id number] Implanted:Qty : 1 on 04/19/2024 by Ulysses Daugherty M.D. at [facility] Hardware e.g. pins/screws/ rods Left: Foot Depuy Synthes 4 / / Scrw Lcp St Fthrd Lck 2.7x22 - [id number] Implanted:Qty : 1 on 04/19/2024 by Ulysses Daugherty M.D. at [facility] Hardware e.g. pins/screws/ rods Left: Foot Depuy Synthes 2 / / R Hip Implant Hip Implant Right: Hip Description:Hardware Explanted Type Area Shell Molder Device Identifier Shelf Expiration Date Model / Serial / Lot Hardware E.G. Pins/Screws/Ro ds Explanted:Qty: 2 on 04/19/2024 at [facility] Hardware e.g. pins/screws/ rods Left: Foot Description:2 screws removed from left foot Procedures Procedure Name Priority Date/Time Associated Diagnosis Comments FL US GUIDE PLC NDL Routine 07/26/2024 2:[address] CLERK Piriformis Syndrome Left FL INJ TRIGGER PNT<=2 MUS Routine 07/26/2024 2:[address] CLERK Piriformis Syndrome Left DX FOOT LEFT 3+ VIEWS RAD - Routine (most inpatients and all outpatients) 07/04/2024 9:[address] CLERK Pain Big Great Toe Left DX FOOT LEFT 3+ VIEWS RAD - Routine (most inpatients and all outpatients) 05/29/2024 7:[address] CLERK Hallux Rigidus Left BASIC METABOLIC PANEL, S/P Routine 05/27/2022 5:[address] CLERK HEPATITIS B SURFACE ANTIGEN Routine 07/30/2020 2:[address] CLERK Rash Multiple Site Pruritus from Last 3 Months or Most Recently Relevant to Health Maintenance Results * FL INJ TRIGGER PNT<=2 MUS, FL US GUIDE PLC NDL (07/26/2024 2:[address] CLERK) Narrative MMODAL - 07/26/2024 2:[address] CLERK Milton Castellon M.D. 07/26/2024 4:06 PM PM Trigger point injection (left piriformis) Performed by: Milton Castellon M.D. Authorized by: David Kerns APRN, C.N.P., D.N.P. Care team members present 1. Ashley Saenz L.P.N. PROCEDURE SUMMARY Indication: Left piriformis pain Pre procedure pain score: 7/10 Post procedure pain score: 2/10 Soft tissue site: left piriformis Piriformis: Piriformis position: prone Preparation: Patient was prepped and draped in usual sterile fashion Needle size: 22 G Needle length: 3.5 in Number of muscles injected: 1 or 2 muscles Lumbosacral muscles: left piriformis IMAGING Ultrasound image guidance used to localize target, identify at risk structures, and dynamically used to direct therapy to the target. Image(s) acquired and saved. Ultrasound probe (MHz): convex low/mid-frequency Needle visualization: in-plane Needle approach: medial to lateral INJECTED MEDICATIONS The injected medication(s) listed was divided equally between the identified injection location(s) Total volume of injectate (mL): 4 Total steroid in injectate (mg): 10 3 mL lidocaine 20 mg/mL 10 mg dexAMETHasone 10 mg/mL PROCEDURE DETAILS Piriformis procedure description: The patient was placed in the appropriate position. Prior to the procedure, the appropriate buttock region was examined to identify the piriformis muscle. If ultrasound was used, the sciatic nerve was visualized and the lower extremity was passively internally and externally rotated verifying the location of the piriformis muscle. Thereafter, using ultrasound guidance if needed, a needle was advanced into the piriformis muscle. After visualization of the needle tip in the target area and negative aspiration, the medication was injected into the piriformis muscle. Following the injection, the needle was withdrawn. The patient tolerated the procedure well and there were no apparent complications. After an appropriate amount of observation, the patient was dismissed from the clinic in good condition under their own power. CONSENT Consent obtained: written (Risks, benefits and alternatives were discussed and a written Informed Consent was obtained. Please see Informed Consent form for further details.) UNIVERSAL PROTOCOL All relevant documentation and testing were reviewed and available. All required blood products, implants, devices and or special equipment were made available as applicable. Pre-procedure verification was conducted and the correct site was marked if required. A fire risk and smoke assessment were done as applicable. The procedural time-out to verify correct patient, correct side/site, and procedure was conducted prior to performing the procedure and confirmed in a procedural pause. PRE-PROCEDURE DETAILS Appropriate hand hygiene, gown, cap, mask, protective eyewear, sterile gloves, skin preparation, sterile drape, and strict aseptic technique were utilized as applicable for the procedure. Skin preparation: chlorhexidine SEDATION / ANESTHESIA Anesthesia method: local infiltration Local infiltrate type: lidocaine POST-PROCEDURE DETAILS Complications: no apparent complications Comments Patient tolerated the procedure very well. She reported concordant pain with passage of the needle into the piriformis muscle. The sciatic nerve was visualized and noted to be well outside of the anticipated spread of injectate. After the procedure the patient reported not changes that would suggest sciatic nerve involvement. ATTESTATION STATEMENT A resident or fellow participated in the procedure, and the project management consultant was present for the entire procedure. OPERATIVE NOTE INFORMATION Specimens: 0 Drains: 0 Estimated blood loss: 0 Implants: 0 David Kerns APRN, C.N.P ., D.N.P. PROCEDURE/MINOR SURGICAL ORDERABLES Final Result MMODAL NA * DX Foot Left 3+ Views (07/04/2024 9:[address] CLERK) Only the most recent of2 resultswithin the time period is included. Anatomical Region Laterality Modality Lower Extremity, Foot, Muscu loskeletal RST LOS, Musculoskeletal ARZ LOS, Muskuloskeletal FLA LOS Left Digit al Radiography Impressions 07/04/2024 9:[address] CLERK Left 1st MTP joint arthrodesis with plate and screw fixation. Surgical hardware is intact. Early bridging bone formation across the joint space. Calcaneal spurs. Narrative 07/04/2024 9:[address] CLERK EXAM: DX FOOT LEFT 3+ VIEWS Procedure Note Shiraz Wills M.D. - 07/04/2024 EXAM: DX FOOT LEFT 3+ VIEWS IMPRESSION: Left 1st MTP joint arthrodesis with plate and screw fixation. Surgicalhardware is intact. Early bridging bone formation across the joint space.Calcaneal spurs. Maico Thmoas P.A.-C. IMG DIAGNOSTIC IMAGING FL OCEDURES Final Result * Basic Metabolic Panel (05/27/2022 5:[address] CLERK) Potassium, S 4.3 3.6 - 5.2 mmol/L 05/27/2022 5:[address] CLERK DTL Sodium, S 142 135 - 145 mmol/L 05/27/2022 5:[address] CLERK DTL Chloride, S 106 98 - 107 mmol/L 05/27/2022 5:[address] CLERK DTL Bicarbonate, S 26 22 - 29 mmol/L 05/27/2022 5:[address] CLERK DTL Anion Gap 10 7 - 15 05/27/2022 5:[address] CLERK DTL BUN (Blood Urea Nitrogen), S 11 6 - 21 mg/dL 05/27/2022 5:[address] CLERK DTL Creatinine 0.64 0.59 - 1.04 mg/dL 05/27/2022 5:[address] CLERK DTL Estimated GFR (eGFR) >90 >=60 mL/min/BSA 05/27/2022 5:[address] CLERK DTL Comment: Estimated GFR calculated using the 2020 CKD_EPI creatinine equation. Calcium, Total, S 9.1 8.8 - 10.2 mg/dL 05/27/2022 5:[address] CLERK DTL Glucose, S 109 70 - 140 mg/dL 05/27/2022 5:[address] CLERK DTL Blood (Blood, Venous) 05/27/2022 5:[address] CLERK 05/27/2022 5:[address] CLERK us Lisa Gomez M.D. LAB BLOOD ADD-ON Final Res ult Performing Organization Address City/[facility]/ZIP Co de Phone Number [facility] [address] [place] [address], [facility] [address] [place] [address] * Hepatitis B Surface Antigen (07/30/2020 2:[address] CLERK) HBs Antigen, S Negative Negative 07/31/2020 8:[address]ERK [facility] Blood (Blood, Venous) 07/30/2020 2:[address] CLERK 07/30/2020 6:[address] CLERK us Jayde Courtney M.D. LAB MICROBIOLOGY - BLOOD ORD ERABLES Final Result [facility] SUPPORT [place] [address] [place] [address] [facility] Dept. of Laboratory Medicine and Pathology [address] [place] [address] from Last 3 Months or Most Recently Relevant to Health Maintenance Insurance [facility] Care Teams Auto Damage Appraiser Relationship Specialty Start Date End Date Elsewhere, Pcp PCP - General Internal Medicine 04/17/24
--- OUTSIDE RECORDS SUMMARY | 2024-08-15 15:46 | XMS_ITS | Encounter Summary ---
Author Organization [place] Address [address] [place] [address] Care Team Providers Care Calcine Furnace Tender Name Role Phone No Ref-Primary, Physician Primary Care Provider Axel Victor MD Unavailable Lawrence Rowland PA-C Unavailable + [phone] Axel Victor MD Primary Care Provider [phone] Encounter Details Date Type Department Care Team (Late st Contact Info) Description 07/23/2024 [facility] [place] [facility] [address] [place] [address] Cristopher Velasquez, [address] [place], [place] [address] Social History Tobacco Use Types Packs/Day Years [...] in an abandoned building, in an overnight intermediate, or couch-surfing.) Yes 06/15/2023 Are you worried [...] on file 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 Gender Identity Not on file Sexual Orientation Not on file documented as of this encounter Plan of Treatment Upcoming Encounters Date Type Department Care Team (Late st Contact Info) Description 08/29/2024 3:30 PM CDT Office Visit [facility] [address] [place] [address] [place] [address] [place] [address] documented as of this encounter Visit Diagnoses Not on filedocumented in this encounter Additional Health Concerns Assessment Noted Time PHQ-9 Depression Total Score: 13 023 10:50 AM CDT documented as of this encounter Care Teams Calcine Furnace Tender Relationship Specialty Start Date End Date No Ref-Primary, Physician PCP - General 07/03/19 07/24/24 [place] [address] [address] [address] PCP - General Family Medicine 07/25/24 [place] [address] [address] [address] Assigned PCP 06/30/23 Lawrence Rowland PA-C 1 [facility] [place] [address] Assigned Sleep Provider 08/19/23 documented as of this encounter
--- OUTSIDE RECORDS SUMMARY | 2024-08-15 15:46 | XMS_ITS | Encounter Summary ---
Author Organization [place] Address [address] [place] [address] Care Team Providers Care Segment Producer Name Role Phone No Ref-Primary, Physician Primary Care Provider Axel Victor MD Unavailable Lawrence Rowland PA-C Unavailable + [phone] Axel Victor MD Primary Care Provider [phone] Encounter Details Date Type Department Care Team (Late st Contact Info) Description 07/19/2024 [facility] Medical Advice [facility] Care [address] [place] [address] [place] Social History Tobacco Use Types Packs/Day Years [...] in an abandoned building, in an overnight nursing home, or couch-surfing.) Yes 06/15/2023 Are you worried [...] on file 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 Gender Identity Not on file Sexual Orientation Not on file documented as of this encounter Plan of Treatment Upcoming Encounters Date Type Department Care Team (Late st Contact Info) Description 08/29/2024 3:30 PM CDT Office Visit [facility] [address] [place] [address] [place] [address] [place] [address] documented as of this encounter Visit Diagnoses Not on filedocumented in this encounter Additional Health Concerns Assessment Noted Time PHQ-9 Depression Total Score: 13 023 10:50 AM CDT documented as of this encounter Care Teams Segment Producer Relationship Specialty Start Date End Date No Ref-Primary, Physician PCP - General 07/03/19 07/24/24 [place] [address] [place] [address] PCP - General Family Medicine 07/25/24 [place] [address] [address] [address] Assigned PCP 06/30/23 Lawrence Rowland PA-C 1 [facility] [place] LOBO [id number] Assigned Sleep Provider 08/19/23 documented as of this encounter
[2024-08-15 15:47] LABS: Calcium* 9.6 mg/dL (8.4-10.6)
--- OUTSIDE RECORDS SUMMARY | 2024-08-15 15:47 | XMS_ITS | Encounter Summary ---
Author Organization [facility] Address [address] [place] [address]. [place] [address] Care Team Providers Care Hops Farmworker Name Role Phone No Ref-Primary, Physician Primary Care Provider Axel Victor MD Unavailable Amina De Paz MD Unavailable [phone] Axel Victor MD Unavailable Lawrence Rowland PA-C Unavailable + [phone] Axel Victor MD Primary Care Provider [phone] Encounter Details Date Type Department Care Team (Late st Contact Info) Description 06/08/2023 [facility] [address] [place] [address] [place] [address] [place] [address] Social History Tobacco Use Types Packs/Day Years Used Date Smoking Tobacco: Never Smokeless Tobacco: Never Alcohol Use Standard Drinks/Week Comments Yes 4 (1 standard drink = 0.6 oz pur e alcohol) 4 drinks per week PHQ-2 Answer Date Recorded PHQ-2 Score 5 03/11/2023 Adolescent Education Answer Date Record ed Getting School Help Needed Not on file 03/10 Food Insecurity Answer Date Recorded Within the past 12 months, d id you worry that your food would run out before you got money to buy more? No 05/12/2023 Within the past 12 months, d id the food you bought just not last and you didn t have money to get more? No 05/12/2023 Housing Stability Answer Date Recorded Do you have housing? (Brittnee quinonez is defined as stable permanent housing and does not include staying ouside in a car, in a tent, in an abandoned building, in an overnight custodial, or couch-surfing.) Yes 05/12/2023 Are you worried about losing your housing? No 05/12/2023 Financial Resource Strain Answer Date R ecorded Within the past 12 months, h ave you or your family members you live with been unable to get utilities (heat, electricity) when it was really needed? No 05/12/2023 Transportation Needs Answer Date Record ed Within the past 12 months, h as lack of transportation kept you from medical appointments, getting your medicines, non-medical meetings or appointments, work, or from getting things that you need? 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 Gender Identity Not on file Sexual Orientation Not on file documented as of this encounter Plan of Treatment Upcoming Encounters Date Type Department Care Team (Late st Contact Info) Description 08/29/2024 3:30 PM CDT Office Visit [facility] [address] [place] [address] [place] [address] [place] [address] documented as of this encounter Visit Diagnoses Not on filedocumented in this encounter Additional Health Concerns Assessment Noted Time PHQ-9 Depression Total Score: 13 023 10:50 AM CDT documented as of this encounter Care Teams Hops Farmworker Relationship Specialty Start Date End Date No Ref-Primary, Physician PCP - General 07/03/19 07/24/24 [place] [address] [address] [address] PCP - General Family Medicine 07/25/24 [place] [address] [address] [address] Assigned PCP 03/03/23 06/17/23 Amina De Paz MD [address] [place] [address] Assigned PCP 06/18/23 06/29/23 [place] [address] [address] [address] [address] Assigned PCP 06/30/23 Lawrence Rowland PA-C 1 [facility] [place] [address] Assigned Sleep Provider 08/19/23 documented as of this encounter
--- OUTSIDE RECORDS SUMMARY | 2024-08-15 15:47 | XMS_ITS | Clinical Summary ---
Author Organization [facility] Address [facility] [place] [address] Care Team Providers Care Shaper Machine Hand Name Role Phone Pcp, No Primary Care Provider Unavailabl e Allergies Active Allergy Reactions Criticality Noted Date Comments Sulfa (Sulfonamide Antibiotics) *Unknown 09/04 Medications MULTIVITAMINS (MULTIVITAMIN ORAL) Take by mouth. Activ e cyclobenzaprine (FLEXERIL) 10 mg tabletIndicatio ns:Neck stiffness Take 1 Tablet (10 mg) by mouth three times daily. 10 Tablet 3 Active acetaminophen (TYLENOL EXTRA STRGTH) 500 mg tablet Take 1,000 mg by mouth every 6 hours. 2 Active ascorbic acid, vitamin C, (VITAMIN C) 500 mg tablet Take 500 mg by mouth. Active cholecalciferol , Vitamin D3, 2,000 unit tablet Take by mouth. Activ e cyanocobalamin (VITAMIN B12) 1,000 mcg tablet Take by mouth. Activ e dicyclomine (BENTYL) 10 mg capsule Take 10 mg by mouth. Active famotidine (PEPCID) 20 mg tablet once daily. 3 Active lansoprazole (PREVACID) 30 mg capsule Take 30 mg by mouth once daily. Active hydrOXYzine HCL (ATARAX) 25 mg tablet TAKE 1 TABLET BY MOUTH FOUR TIMES A DAY NEEDED FOR ITCHING 1 Active pimecrolimus (ELIDEL) 1 % cream one time if needed. 2 Active sucralfate (CARAFATE) 1 gram tablet Take 1 g by mouth 3 times daily if needed. Active triamcinolone (ARISTOCORT; KENALOG) 0.1 % cream Apply topically to affected area(s). 1 Active atorvastatin (LIPITOR) 40 mg tablet 1 tablet Orally Once a day Active eszopiclone (LUNESTA) 1 mg tabletIndicatio ns:Primary insomnia Take 1 Tablet (1 mg) by mouth at bedtime. 14 Tablet 4 Active traZODone (DESYREL) 50 mg tabletIndicatio ns:Primary insomnia Take 1 Tablet (50 mg) by mouth at bedtime. 31 Tablet 4 Active sertraline (ZOLOFT) 50 mg tabletIndicatio ns:MIKHAIL (generalized anxiety disorder) Take 1 Tablet (50 mg) by mouth once daily in the morning. 90 Tablet 4 Active Active Problems Problem Noted Date Diagnosed Date At high risk for breast cancer 04/18/2024 Overview (04/18/2024): Alternate annual mammogram and annual MRI-breast every 6 months. Aftercare following joint replacement surgery Cervical radiculopathy 03/26/2022 Psoas tendinitis 03/16/2022 Overview (12/10/2022): Added automatically from request for surgery [id number] Presence of right artificial hip joint 1 Pain due to hip joint prosthesis 08/01/2020 Sacroiliac joint pain 08/01/2020 Occipital neuralgia of left side 02/29/2020 Persistent insomnia 02/29/2020 Primary insomnia 02/29/2020 Avascular necrosis of right femoral head 019 Acquired hallux valgus of right foot 01/02/2018 Overview (12/10/2022): Added automatically from request for surgery [id number] Curly toe, acquired, right 01/02/2018 Overview (12/10/2022): Added automatically from request for surgery [id number] Chronic low back pain 09/22/2016 Neck pain on left side 07/30/2016 Gastroesophageal reflux disease 06/06/2015 Spondylosis of cervical spine without myelopathy 01/14/2015 Degenerative disc disease, cervical 12/03/2014 Encounters Date Type Department Care Team Description 06/12/2024 Refill [facility] [address] [place] [address] Mayda Del Rosario PA Refill Request (Eszopiclone) from Last 3 Months Immunizations Immunization Administration Dates Next Due Influenza RIV4 (Age 18+ Year s) PRESERV FREE 03/11/2023 Influenza Virus, Unspecified 03/06/2020,08/16/19 Pneumococcal conj 13-Valent (Prevnar 13) 08/16/2019 RSV, Bivalent Vaccine Recons tituted (Abrysvo 120MCG/0.5mL) 05/12/2023 Td (Age >=7 Years) 07/28/2020(Deferred: Patient Refused),07/28/2020(Deferred: Patient Refused) Zoster, Unspecified Formulation 07/28/19(Deferred: Patient Refused),07/28/2020(Deferred: Patient Refused) Family History Medical History Relation Name Comments Cancer-breast Daughter Cancer-breast Other cousins x2 mat ernal Cancer-breast Sister BRCA neg Relation Name Status Comments Daughter Alive Other Sister Social History Tobacco Use Types Packs/Day Years Used Date Smoking Tobacco: Never Smokeless Tobacco: Never Tobacco Cessation:Counseling Given: Not Answered Alcohol Use Standard Drinks/Week Comments Yes 0 (1 standard drink = 0.6 oz pur e alcohol) occ PHQ-2 Answer Date Recorded PHQ-2 TOTAL SCORE 1 02/13/2024 Comments No Sex and Gender Information Value Date Recorded Sex Assigned at Not on file 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 Gender Identity Not on file Sexual Orientation Not on file Obstetrics History Last Filed Vital Signs Vital Sign Reading Time Taken Comments Blood Pressure 130/64 03/26/2024 12:26 PM CDT Pulse 102 03/26/2024 12:26 PM CDT Temperature 37.7 C (99.9 F) 12/10/2022 11:50 AM CDT Respiratory Rate 12 12/10/2022 11:50 AM CDT Oxygen Saturation 97% 03/26/2024 12:26 PM CDT Inhaled Oxygen Concentration - - Weight 68 kg (150 lb) 02/13/2024 3:01 PM CDT Height 175.3 cm (5' 9) 02/13/2024 3:01 PM CDT Body Mass Index 22.15 02/13/2024 3:01 PM CDT Plan of Treatment Upcoming Encounters Date Type Department Care Team (Late st Contact Info) Description 08/17/2024 11:25 AM CDT Office Visit [facility] [address] [place] [phone] Margie Rider MD [address] [place] [address] Health Maintenance Due Date Last Done Comments Tdap 1973 HIV for age 15-65 1977 Hepatitis C screening for ag e 18-79 1980 Tetanus booster 1982 Pap test for age 21-65 1983 Colonoscopy through age 75 2007 Lipids for age 45-75 2007 Zoster (shingles) series for age 50+ (1 of 2) 2012 Pneumococcal series for age 50+ (2 of 2 - PPSV23) 08/15/2020 08/16/2019 COVID-19 vaccine series (2 - season) 2024 05/12/2023 Influenza Vaccine (#1) 2024 3, 03/06/2020, 08/16/2019 Mammogram for HIGH RISK patient 09/13/2024 09/14/2023 (Verified in Care Everywhere or Patient Record), 08/29/2009, 10/17/2007 BMI (ht and wt on same day) for age 18+ 02/12/2025 02/13/2024 Depression screening for age 12+ 02/12/2025 02/13/20 24 RSV vaccine for adults or Completed 05/12/2023 Procedures Procedure Name Priority Date/Time Associated Diagnosis Comments XR MAMMO BILAT DIAG FFDM (IA) Routine 08/29/2009 3:14 PM CDT Lump or mass in breast from Last 3 Months or Most Recently Relevant to Health Maintenance Results * XR MAMMO BILAT DIAG FFDM (08/29/2009 3:14 PM CDT) Anatomical Region Laterality Modality BREASTS, Breast Left, Breast Right Bilateral Mammography 08/29/2009 3:14 PM CDT Impressions 08/29/2009 5:05 PM CDT 1. No mammographic or sonographic evidence of malignancy in either breast. Management should be based on clinical findings. Patient to followup clinically per Dr. Hilario. 2. Recommend routine annual screening mammography. The findings and recommendations were discussed with the patient. ACR 2 Benign Finding Debby Baer M.D. Breast Radiologist [employer]nl[employer] D& Narrative 08/29/2009 5:05 PM CDT BILATERAL FULL-FIELD DIGITAL DIAGNOSTIC MAMMOGRAM WITH COMPUTER-AIDED DETECTION AND ULTRASOUND, 08/29/2009 CLINICAL HISTORY: LEFT breast lump in area of prior surgery. Patient examined by Dr. Hilario who marked the area of concern. COMPARISON STUDIES: Prior mammograms of 12/24/2008 and 10/17/2007. FINDINGS: Bilateral full-field digital diagnostic mammography was performed and interpreted with the benefit of computer-aided detection. A triangular marker was placed over the palpable abnormality. Breast density is scattered fibroglandular tissue (25 to 50% glandular). No corresponding mass or architectural distortion is seen in the LEFT breast corresponding to the marker. No suspicious mass or calcifications are seen in either breast. Patient was then taken to the ultrasound examination room. I was able to palpate the area of thickening in the LEFT breast in the region of her scar. Targeted ultrasound examination to the area of concern showed no mass or architectural distortion suspicious for malignancy. Mild architectural distortion in the region of the scar is seen. Procedure Note Debby Baer MD - 08/29/2009 BILATERAL FULL-FIELD DIGITAL DIAGNOSTIC MAMMOGRAM WITH COMPUTER-AIDEDDETECTION AND ULTRASOUND, 08/29/2009 CLINICAL HISTORY: LEFT breast lump in area of prior surgery. Patientexamined by Dr. Hilario who marked the area of concern. COMPARISON STUDIES: Prior mammograms of 12/24/2008 and 10/17/2007. FINDINGS: Bilateral full-field digital diagnostic mammography wasperformed and interpreted with the benefit of computer-aided detection. Atriangular marker was placed over the palpable abnormality. Breast density is scattered fibroglandular tissue (25 to 50% glandular). No corresponding mass or architectural distortion is seen in the LEFTbreast corresponding to the marker. No suspicious mass or calcificationsare seen in either breast. Patient was then taken to the ultrasound examination room. I was able topalpate the area of thickening in the LEFT breast in the region of herscar. Targeted ultrasound examination to the area of concern showed nomass or architectural distortion suspicious for malignancy. Mildarchitectural distortion in the region of the scar is seen. IMPRESSION: 1. No mammographic or sonographic evidence of malignancy in either breast.Management should be based on clinical findings. Patient to followupclinically per Dr. Hilario. 2. Recommend routine annual screening mammography. The findings and recommendations were discussed with the patient. ACR 2 Benign Finding Debby Baer M.D. Breast Radiologist [employer]:nlp D& Jenifer Hilario MD MAMMO Final Resul t from Last 3 Months or Most Recently Relevant to Health Maintenance Insurance [facility] NON-DC-ITS Care Teams Shaper Machine Hand Relationship Specialty Start Date End Date Pcp, No . PCP - General 02/14/24
--- OUTSIDE RECORDS SUMMARY | 2024-08-15 15:47 | XMS_ITS | Encounter Summary ---
Author Organization [place] Address [address] [place] [address] Care Team Providers Care Program Host Name Role Phone No Ref-Primary, Physician Primary Care Provider Axel Victor MD Unavailable Amina De Paz MD Unavailable [phone] Axel Victor MD Unavailable Lawrence Rowland PA-C Unavailable + [phone] Axel Victor MD Primary Care Provider [phone] Encounter Details Date Type Department Care Team (Late st Contact Info) Description 04/12/2023 [facility] [address] [address] Imtiaz Juarez MA Social History Tobacco Use Types Packs/Day Years Used Date Smoking Tobacco: Never Alcohol Use Standard Drinks/Week Comments Yes 0 (1 standard drink = 0.6 oz pur e alcohol) 3 drinks per week PHQ-2 Answer Date Recorded PHQ-2 Score 5 03/11/2023 Adolescent Education Answer Date Record ed Getting School Help Needed Not on file 03/10 Food Insecurity Answer Date Recorded Within the past 12 months, d id you worry that your food would run out before you got money to buy more? No 03/11/2023 Within the past 12 months, d id the food you bought just not last and you didn t have money to get more? No 03/11/2023 Housing Stability Answer Date Recorded Do you have housing? (Housin g is defined as stable permanent housing and does not include staying ouside in a car, in a tent, in an abandoned building, in an overnight group home, or couch-surfing.) Yes 03/11/2023 Are you worried about losing your housing? No 03/11/2023 Financial Resource Strain Answer Date R ecorded Within the past 12 months, h ave you or your family members you live with been unable to get utilities (heat, electricity) when it was really needed? No 03/11/2023 Transportation Needs Answer Date Record ed Within the past 12 months, h as lack of transportation kept you from medical appointments, getting your medicines, non-medical meetings or appointments, work, or from getting things that you need? 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 Gender Identity Not on file Sexual Orientation Not on file documented as of this encounter Plan of Treatment Upcoming Encounters Date Type Department Care Team (Late st Contact Info) Description 08/29/2024 3:30 PM CDT Office Visit [facility] [address] [place] [address] [place] [address] [place], [place] [phone] documented as of this encounter Visit Diagnoses Not on filedocumented in this encounter Additional Health Concerns Assessment Noted Time PHQ-9 Depression Total Score: 13 023 10:50 AM CDT documented as of this encounter Care Teams Program Host Relationship Specialty Start Date End Date No Ref-Primary, Physician PCP - General 07/03/19 07/24/24 [place] [address] [place] [address] PCP - General Family Medicine 07/25/24 [place] [address] [address] [address] Assigned PCP 03/03/23 06/17/23 Amina De Paz MD [address] [place] [address] Assigned PCP 06/18/23 06/29/23 [place] [address] [address] [address] Assigned PCP 06/30/23 Lawrence Rowland PA-C [address] [facility] [place] [address] Assigned Sleep Provider 08/19/23 documented as of this encounter
--- OUTSIDE RECORDS SUMMARY | 2024-08-15 15:47 | XMS_ITS | Clinical Summary ---
Author Organization [facility] Address [address] [facility] , [address] [place] [address] Phone Care Team Providers Care Rn Endocrinology Name Role Phone [facility] Unavailable Unava ilable Conditions or Problems Problem Name Problem Code Onset Date Status Entry Date Provider Comment Standard Description Annotate Hand numbness [id number] (SNOMED CT) Active Westley Shields MD Numbness of hand Medications No information available. Medications Administered No information available. Allergies, Adverse Reactions, Alerts No information available. Results Date Name Value Unit Range Flag Description Internal Other: Authorizatio n AUTHBENEFIT Yes Authoriza tion: Assignment of Benefits and Payment Agreement [email or web address] Yes Authorizat ion: Authorization for [facility] to leave messages, voicemail, send text messages, send emails AUTHRELHCARE Yes Authoriz ation: Release/Retrieval of Information to/from Healthcare Facilities, Pharmacy Benefit Payers and Providers ROIAUTHOTHER Yes Authoriz ation: Release of Information - Authorize Others/Insurance - Payment and Healthcare Operations [email or web address] Yes Authoriza tion: Release of Information - Authorize [facility] - Payment and Healthcare Operations AUTHPRIVPRAC Yes Authoriz ation: Notice of privacy practices HIECONSENT Yes Consent To Release information to the Health Information Exchange (HIE) Internal Other: Verbal Autho rization/Emergency Contact VERBAL_EMER Done Verbal au thorization and emergency contact Plan of Care No information available. Procedures Code Procedure Name Date Entry Date [id number] Nerve Conduction 9-10 studies CPT-18157 EMG with NCS (5+ muscles) - 1 limb 07/26 Vital Signs No information available. Immunizations No information available. Advance Directives No information available.
--- OUTSIDE RECORDS SUMMARY | 2024-08-15 15:47 | XMS_ITS | Patient Health Record ---
Author Organization [facility] [place] Address [address] [facility] [place], [place] [id number] Care Team Providers Care Management Rep Name Role Phone Janelle Costello Primary Care Provider Unav ailable WANDA ZAMORA Unavailable [phone] Wanda Zamora M.D. Unavailable Unavailable Allergies Allergen (clinical drug ingredient) Drug/Non Drug Allergy documented on EMR Reaction Allergy Type Onset Date Status Substance with sulfonamide structure and antibacterial mechanism of action (substance) Sulfa Antibiotics Unknown Drug Allergy Active Reason For Referral No Information Medications Medication SIG (Take, Route, Frequency, Duration) Notes Start Date End Date Status Lansoprazole 30 MG 1 capsule before a m eal Orally Once a day Active Cyclobenzaprine HCl 10 MG 1 tablet as ne eded Orally twice a day for 30 day(s) 09/09/2021 Active oxyCODONE HCl 5 MG 1 tablet as needed O rally every 4-6hrs for 30 days 01/27/2022 Active Dicyclomine HCl 10 MG/ML 1 ml Intramuscu lar Four times a day Active Atorvastatin Calcium 40 MG 1 tablet Oral ly Once a day Active Celecoxib 200 MG 1 capsule with food Orally Once a day Active LORazepam 2 MG/ML 1 ml as needed Injec tion every 6 hrs Active Social History Tobacco Use: Social History Observation Description Date Details (start date - stop date) Never Smoker NA - NA Household Question Answer Notes Marital status: Tobacco Use/Smoking Question Answer Notes Are you a nonsmoker Problems Problem Type SNOMED Code ICD Code Onset Dates Problem Status W/U Status Risk Notes Problem 21269304 Cervical radiculopathy (M54.12) Active confirmed Problem 013339569 Cervical spondylosis (M47.812) Active confirmed Problem 427619224253 Status post tota l hip replacement, 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) Active confirmed Problem 41102612 Sacroiliitis (M46.1) Active confirmed Plan Of Treatment No Information Insurance Providers Payer Name Payer Address Payer Phone Subscriber Number Group Number Insured Name Patient Relationship to Insured Coverage Start Date Coverage End Date [facility] [address] [place] [address] [id number] MinorJamye wharton Spouse - patient is the spouse of the insured Medical (General) History Medical History History ICD Code Abdominal pain Bloating Cervical radiculopathy Complication of anesthesia Degenerative disc disease, cervical Eczema Fractures Gastro-esophageal reflux disease without esophagitis GERD (gastroesophageal reflux disease) Head injury Hiatal hernia Kidney calculi Migraine headache Migraines Numbness and tingling of left upper extr emity Pneumonia Surgical History Surgery Date(Month/Year) APPENDECTOMY BREAST EXCISIONAL BIOPSY left SECTION COLONOSCOPY COLONOSCOPY WITH ANESTHESIA 2015 EGD (ESOPHAGOGASTRODUODENOSCOPY) EGD (ESOPHAGOGASTRODUODENOSCOPY) JOINT REPLACEMENT right LUMPECTOMY BREAST MOUTH SURGERY OOPHORECTOMY rui 2014 OSTEOTOMY HALLUX VALGUS (BUNIONECTOMY) l eft 2017 OSTEOTOMY HALLUX VALGUS (BUNIONECTOMY) r ight 2018 GA DSTR NROLYTC AGNT PARVERTEB FCT SNGL CRVCL/THORA left 2016 TOTAL HIP ARTHROPLASTY CAMMIE VERSYS rig ht 2018 vitrectomy 12/2021
--- OUTSIDE RECORDS SUMMARY | 2024-08-15 15:47 | XMS_ITS | Encounter Summary ---
Author Organization [place] Address [address] [place] [address]. [place] [address] Care Team Providers Care Halal Meat Packer Name Role Phone No Ref-Primary, Physician Primary Care Provider Amina De Paz MD Unavailable [phone] Axel Victor MD Unavailable Lawrence Rowland PA-C Unavailable + [phone] Axel Victor MD Primary Care Provider [phone] Encounter Details Date Type Department Care Team (Late st Contact Info) Description 06/20/2023 [facility] [place] [address] [address] Norma Denny, RN Social History Tobacco Use Types Packs/Day Years [...] in an abandoned building, in an overnight detention, or couch-surfing.) Yes 06/15/2023 Are you worried [...] on file Legal Sex 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 Gender Identity Not on file Sexual Orientation Not on file documented as of this encounter Plan of Treatment Upcoming Encounters Date Type Department Care Team (Late st Contact Info) Description 08/29/2024 3:30 PM CDT Office Visit [facility] [address] [place] [phone] [place] [address] [place] [address] documented as of this encounter Visit Diagnoses Not on filedocumented in this encounter Additional Health Concerns Assessment Noted Time PHQ-9 Depression Total Score: 13 023 10:50 AM CDT documented as of this encounter Care Teams Halal Meat Packer Relationship Specialty Start Date End Date No Ref-Primary, Physician PCP - General 07/03/19 07/24/24 [place] [address] [address] [address] PCP - General Family Medicine 07/25/24 Amina De Paz MD [address] [place] [address] Assigned PCP 06/18/23 06/29/23 [place] [address] [address] [address] Assigned PCP 06/30/23 Lawrence Rowland PA-C [address] [facility] [place] [address] Assigned Sleep Provider 08/19/23 documented as of this encounter
--- OUTSIDE RECORDS SUMMARY | 2024-08-15 15:47 | XMS_ITS | Encounter Summary ---
Author Organization [place] Address [address] [place] [address]. [place] [address] Care Team Providers Care Baseball Scout Name Role Phone No Ref-Primary, Physician Primary Care Provider Axel Victor MD Unavailable Lawrence Rowland PA-C Unavailable + [phone] Axel Victor MD Primary Care Provider [phone] Encounter Details Date Type Department Care Team (Late st Contact Info) Description 02/07/2024 [facility] Medical Advice [facility] [address] [place] [address] [place] [address] [place] [address] Claustrophobia (Primary Dx) Social History Tobacco Use Types Packs/Day Years [...] in an abandoned building, in an overnight prison, or couch-surfing.) Yes 06/15/2023 Are you worried [...] file 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 Sent her a MCM as well relaying Dr. Reyna's message. TAYLER Ace, RN [facility] 02/08/2024 at 3:10 PM * Telephone Encounter - Axel Victor MD - 02/07/2024 2:34 PM CDT Please let patient know this was sent to pharmacy. She should not drive or operate heavy machinery while on medication. Will need driver manager to take her and pick her up from MRI appointment. Thanks, Axel Victor MD [facility] [place] 02/07/2024 * Telephone Encounter - Anny Koehler - 02/07/2024 11:25 AM CDT Routing to provider to advise. Anny Aguirre Lead Curtain Stretcher Assembler [facility] documented in this encounter Plan of Treatment Upcoming Encounters Date Type Department Care Team (Late st Contact Info) Description 08/29/2024 3:30 PM CDT Office Visit [facility] [place] [address] [place] [phone] [place] [address] [place] [address] documented as of this encounter Visit Diagnoses Diagnosis Claustrophobia- Primary Other isolated or specific phobias documented in this encounter Additional Health Concerns Assessment Noted Time PHQ-9 Depression Total Score: 13 023 10:50 AM CDT documented as of this encounter Care Teams Baseball Scout Relationship Specialty Start Date End Date No Ref-Primary, Physician PCP - General 07/03/19 07/24/24 [place] [address] [address] [address] PCP - General Family Medicine 07/25/24 [place] [address] [address] [address] Assigned PCP 06/30/23 Lawrence Rowland PA-C [address] [facility] [place] [address] Assigned Sleep Provider 08/19/23 documented as of this encounter
--- OUTSIDE RECORDS SUMMARY | 2024-08-15 15:47 | XMS_ITS | Encounter Summary ---
Author Organization [facility] Address [address] [place] [address] Care Team Providers Care Field Applications Specialist Name Role Phone Elsewhere, Pcp Primary Care Provider Unavailabl e Reason for Referral * Outpatient (Routine) - Authorized Specialty Diagnoses / Procedures Referred By Contac t Referred To Contact Pain Medicine Diagnoses Piriformis Syndrome Left David Kerns APRN, C.N.PKerry, D.N.P. [address] [place] [phone] Phone: tel: fax: [facility] Referral ID Status Reason Start Date Expiration Date V isits Requested Visits Authorized [id number] Authorized 07/26/2024 01/25/2026 1 1 Scheduling Instructions Self with mick PALOMINO NESS INTELLIGENCE DEVELOPER * Outpatient (Routine) - Closed Specialty Diagnoses / Procedures Referred By Contac t Referred To Contact Diagnoses Piriformis Syndrome Left Procedures PM Trigger point injection David Kerns APRN, C.N.PKerry, D.N.P. [address] [place] [phone] Phone: tel: fax: [facility] Referral ID Status Reason Start Date Expiration Date Visits Re quested Visits Authorized [id number] Closed 07/26/2024 10/26/2025 1 1 NESS INTELLIGENCE DEVELOPER Encounter Details Date Type Department Care Team (Latest Contact Info) Description 07/26/2024 1:30 PM BUSINESS INTELLIGENCE DEVELOPER Comprehensive Visit Division of Pain Medicine in [place], [place] [address] [place] [address] David Kerns APRN, Gen, D.N.P. [address] [place] [address] Piriformis Syndrome Left (Primary Dx); Arthroplasty Total Hip Replacement Status Post Right; Psoas Tendinitis Right Hip Social History Tobacco Use Types Packs/Day Years Used Date Smoking Tobacco: Never Smokeless Tobacco: Never Alcohol Use Standard Drinks/Week Comments Yes 4 (1 standard drink = 0.6 oz pur e alcohol) [facility] [employer] Answer Date Recorded In the past 12 months has [employer], gas, oil, or water [employer] threatened to shut off services in your [...] week 07/08/2022 How often do you attend [facility] or quaker services? More than 4 times per year 07/08/2022 Do you belong to any clubs o r organizations such as shinto groups, unions, fraternal or athletic groups, or [...] Answer Date Recorded PHQ-2 Score 2 07/29/2020 [facility] of Occupat ional [facility] - Occupational Stress Questionnaire Answer Date Recorded [...] your living situation today? I have a [facility] place to live 07/28/2023 Education Answer Date Recorded What is the highest level of school you have completed or the highest degree you have received? Some college, no degree 07/22/2020 Comments No Sex and Gender Information Value Date Recorded Sex Assigned at Female 01/12/2022 11:36 AM CDT Legal Sex Female 8:27 AM CDT Gender Identity Female 07/22/2020 2:09 PM BUSINESS INTELLIGENCE DEVELOPER Sexual Orientation Straight 07/22/2020 2: 09 PM BUSINESS INTELLIGENCE DEVELOPER documented as of this encounter Progress Notes * David Kerns APRN, C.N.P., D.N.P. - 07/26/2024 1:30 PM CST SUBJECTIVE CHIEF COMPLAINT / REASON FOR VISIT Samantha Mendoza presents today in follow-up of 1. Piriformis Syndrome Left 2. Arthroplasty Total Hip Replacement Status Post Right 3. Psoas Tendinitis Right Hip HISTORY OF PRESENT ILLNESS Samantha is a 64 y.o. female with a past medical history of cervical spondylosis, cervical radiculopathy, GERD, right hip pain s/p total right hip arthroplasty with right gluteus sergo transfer and right gluteus medius overlay and sacroiliac joint pain who presents for evaluation consideration of repeat right gluteal sciatic nerve block injections. Initial evaluation for this condition took place with Dr. Tani Granda on 12/19/2023. I would refer the interested reader to this note for full details of the evaluation. Her last diagnostic injection was on 04/18/2024 which provided her with significant relief with pain score starting at a 7 pre procedure to a 2 post procedure and lasting for a day. Briefly, has a longstanding history of right buttock pain that radiates posteriorly down the right thigh to the knee and into the right groin. Today, she also has pain in the left buttock that radiates posteriorly down the left thigh to the knee, this pain is worse in the right side. Aggravating factors include: Prolonged sitting and going from sitting to standing. Alleviating factors include: Standing, walking or sitting in a slouched position. Samantha denies any changes in bowel or bladder function or saddle anesthesia. Denies recent fevers,chills, infections or antibiotics. No allergies to local anesthetic, corticosteroid, or contrast dye. No anticoagulation. Pain score today: 12/13. Samantha's history was reviewed including allergies, current medications, and problem list. OBJECTIVE PHYSICAL EXAMINATION General: Patient is in no distress. Capable of full communication without difficulty. Skin: Limited to back: Warm, dry, pink, and intact. Absent of erythema, lesions, rashes, or infections. Respiratory: Unlabored respirations. Musculoskeletal: There is tenderness to palpation along the bilateral lumbar paraspinal, PSIS, sacroiliac joint and piriformis. Tenderness with palpation along the right trochanteric bursa. No tenderness with palpation along the superior iliac crest bilaterally. Spine: ROM: Range of motion is limited with truncal flexion, extension, and rotation. Maneuvers: Negative passive straight leg test bilaterally. Positive MARCOS test BILATERAL. Positive FADIR LEFT. Positive thigh thrust LEFT. External rotation of the left hip with discomfort. Neuro: Strength: Bilateral hip flexors 4/5. Remainder of lower extremity strength 5/5. Reflexes: Deep tendon reflexes symmetric and 2+. Gait: Normal posture. antalgic gait. Mental: Appropriate mood and affect. Thoughts are organized. DIAGNOSTICS 12/19/2023 EXAM: DX LUMBAR SPINE 2-3 VIEWS IMPRESSION: Since 07/29/2023, slightly increased degenerative endplate changes at L4-L5 and lower lumbar facet arthropathy. Remainder not substantially changed. Lumbar degenerative disc disease. Degenerative changes SI joints. Right NEIL, partially visualized. 09/28/2023 EXAM: MR LUMBAR SPINE WITHOUT IV CONTRAST COMPARISON: Lumbar spine MRI 07/31/2020. FINDINGS: Conventional vertebral numbering. The tip of the conus is at the lower aspect of L1. No abnormal T2 signal in the conus. Normal appearance of the cauda equina nerve roots. Multilevel interspace narrowing greatest at L2-3 and L4-5. Multilevel degenerative endplate changes including at L2-3, L4-5, and progressed asymmetrically to the left atL5-S1 where there are active degenerative endplate changes. Scattered small Schmorl's nodes. Disc bulging at all lumbar levels and mild-moderate facet arthropathy, greatest in the lower lumbar spine, with mild periarticular edema about the left L5-W6tsqln. Spinal canal narrowing is no more than mild. Neural foraminal narrowing has progressed at L5-S1 where it is moderate, left greater than right, with disc material contacting at least the exiting left L5 nerve root (series 9, image 27). Moderate right L4-5 neural foraminal narrowing has mildly progressed. Similar moderate left L4-5 neural foraminal narrowing. Otherwise, scattered foraminal narrowing is relatively mild. Interval atrophic changes of the right psoas muscle IMPRESSION: 1. Scattered spondylotic changes as described, including progression of asymmetric left active endplate changes at L5-S1 with progressed moderate left greater than right neural foraminal narrowing atthis level. Moderate right L4-5 neural foraminal narrowing has also mildly progressed. 2. Interval atrophic changes of the right psoas muscle. ASSESSMENT / PLAN #1 Piriformis Syndrome Left #2 Arthroplasty Total Hip Replacement Status Post Right #3 Psoas Tendinitis Right Hip Samantha is a 64 y.o. female with a past medical history of cervical spondylosis, cervical radiculopathy, GERD, right hip pain s/p total right hip arthroplasty with right gluteus sergo transfer and right gluteus medius overlay and sacroiliac joint pain who presents for evaluation consideration of repeat right gluteal sciatic nerve block injections. Today, she endorses left buttock pain that is worse than the right buttock pain and would like to discuss possible injection on the left side today. Differentials on evaluation today include piriformis syndrome versus sacroiliac joint versus middle cluneal neuralgia versus PSIS. Her exam is most consistent with piriformis syndrome, therefore we will proceed with left piriformis trigger point injection today and hold off on repeat right gluteal sciatic nerve block injection. Mrs. Mendoza verbalizes understanding and agrees with this plan. It is appropriate to proceed with the scheduled LEFT PIRIFORMIS THERAPEUTIC TRIGGER POINT INJECTIONS as there are no obvious contraindications at this time. We have discussed the risks, benefits, andintended outcomes of these procedures. The patient understands that it may take up to 2 weeks to experience significant improvement in pain. It was discussed with the patient that the application of ice and avoidance of heat and soaking are recommended for the first 48 hours after the procedure. Showering is appropriate. The patient stated understanding and their questions and concerns were answered to the best of my abilities. Procedural consent was discussed and signed in office. I have placed a follow up with myself and Dr. Castellon to assess for other potential pain generatorsfor the right buttock pain and if the left piriformis injection is ineffective. FOLLOW-UP: Samantha will follow up with Pain Medicine following this procedure. PATIENT EDUCATION Ready to learn, no apparent learning barriers were identified; learning preferences included listening. Explained diagnosis and treatment plan; patient expressed understanding of the content. Total time: I personally spent a total of 45 minutes in direct discussion, counseling, and/or coordination of care with the patient/caregiver as described above along with pxt-pojf-tb-face time performing a review of the record. David Kerns APRN, C.N.P., D.N.P. NESS INTELLIGENCE DEVELOPER documented in this encounter Plan of Treatment Upcoming Encounters Date Type Department Care Team (Latest Contact Info) Description 09/03/2024 3:30 PM CDT Clinical Communication Virtual Review in [place], [place] [address] [place] [address] 09/04/2024 1:30 PM CDT Office Visit Division of Pain Medicine in [address] [phone] David Kerns APRN, Robbie.N.PKerry, D.N.P. [address] [place] [phone] Scheduled Referrals Name Type Priority Associated Diagnoses Orde r Schedule Pain Medicine office visit (clinic) Outpatient Referral Routine Piriformis Syndrome Left Expected: 08/09/2024, Expires: 10/23/2025 documented as of this encounter Results * MD INJ TRIGGER PNT<=2 MUS, MD US GUIDE PLC NDL (07/26/2024 2:30 PM BUSINESS INTELLIGENCE DEVELOPER) Narrative [facility] - 07/26/2024 2:30 PM BUSINESS INTELLIGENCE DEVELOPER Milton Castellon M.D. 07/26/2024 4:06 PM PM [...] fellow participated in the procedure, and the investigations consultant was present for the entire procedure. OPERATIVE NOTE INFORMATION Specimens: 0 Drains: 0 Estimated blood loss: 0 Implants: 0 us David Kerns APRN, C.N.P ., D.N.P. PROCEDURE/MINOR SURGICAL ORDERABLES Final Result [facility] NA documented in this encounter Visit Diagnoses Diagnosis Piriformis Syndrome Left- Primary Arthroplasty Total Hip Replacement Status Post Right Psoas Tendinitis Right Hip Pain Buttock Piriformis Syndrome Left documented in this encounter Additional Health Concerns Assessment Noted Time PHQ-9 Depression Total Score: 6 07/29/19 21 4:31 PM BUSINESS INTELLIGENCE DEVELOPER documented as of this encounter Care Teams Field Applications Specialist Relationship Specialty Start Date End Date Elsewhere, Pcp PCP - General Internal Medicine 04/17/24 documented as of this encounter
--- OUTSIDE RECORDS SUMMARY | 2024-08-15 15:47 | XMS_ITS | Encounter Summary ---
Author Organization [facility] Address [address] [place] [address] Care Team Providers Care Transition Assistant Name Role Phone Elsewhere, Pcp Primary Care Provider Unavailabl e Reason for Visit * Reason Onset Date Comments Appointment 06/11/2024 Encounter Details Date Type Department Care Team (Late st Contact Info) Description 06/11/2024 Clinical Communication Department of Orthopedic Surgery in [place], [place] [address] [place] [phone] Ulysses Daugherty M.D. [address] [place] [phone] Appointment Social History Tobacco Use Types Packs/Day Years Used Date Smoking Tobacco: Never Smokeless Tobacco: Never Alcohol Use Standard Drinks/Week Comments Yes 4 (1 standard drink = 0.6 oz pur e alcohol) [facility] Utilities Answer Date Recorded In the past 12 months has [facility] [employer], gas, oil, or water [employer] threatened to shut off services in your [...] week 07/08/2022 How often do you attend [facility] or hoahaoism services? More than 4 times per year 07/08/2022 Do you belong to any clubs o r organizations such as protestant groups, unions, fraternal or athletic groups, or [...] Answer Date Recorded PHQ-2 Score 2 07/29/2020 [facility] Occupat ional Health - Occupational Stress [...] your living situation today? I have a [facility] place to live 07/28/2023 Education Answer Date Recorded What is the highest level of school you have completed or the highest degree you have received? Some college, no degree 07/22/2020 Comments No Sex and Gender Information Value Date Recorded Sex Assigned at Female 01/12/2022 11:36 AM CDT Legal Sex Female 8:27 AM CDT Gender Identity Female 07/22/2020 2:09 PM TESTER REGULATOR Sexual Orientation Straight 07/22/2020 2: 09 PM TESTER REGULATOR documented as of this encounter Plan of Treatment Upcoming Encounters Date Type Department Care Team (Latest Contact Info) Description 09/03/2024 3:30 PM CDT Clinical Communication Virtual Review in [place], [place] [address] [place] [phone] 09/04/2024 1:30 PM CDT Office Visit Division of Pain Medicine in [place], [place] [address] [place] [phone] David Kerns APRN, C.N.P., D.N.P. [address] [place] [phone] documented as of this encounter Visit Diagnoses Not on filedocumented in this encounter Additional Health Concerns Assessment Noted Time PHQ-9 Depression Total Score: 6 07/29/19 21 4:31 PM TESTER REGULATOR documented as of this encounter Care Teams Transition Assistant Relationship Specialty Start Date End Date Elsewhere, Pcp PCP - General Internal Medicine 04/17/24 documented as of this encounter
--- OUTSIDE RECORDS SUMMARY | 2024-08-15 15:47 | XMS_ITS | Encounter Summary ---
Author Organization [facility] Address [address] [place] [address] Care Team Providers Care Nurse Practitioner Physician Assistant Name Role Phone Elsewhere, Pcp Primary Care Provider Unavailabl e Reason for Visit * Outpatient (Routine) - Canceled Specialty Diagnoses / Procedures Referred By Tereza t Referred To Contact Diagnoses Pain Buttock Procedures PM Nerve Block injection ID INJ ANES OTHER PERIPHERAL NRV Danilo Tam M.D. [address] [place] [phone] Phone: tel: fax: [facility] Referral ID Status Reason Start Date Expiration Date V isits Requested Visits Authorized [id number] Canceled 06/19/2024 06/19/2025 1 1 Encounter Details Date Type Department Care Team (Latest Contact Info) Description 07/26/2024 2:30 PM INDUSTRIAL GAS FITTER HELPER Procedure visit Division of Pain Medicine in [place], [place] [address] [place] [phone] Milton Castellon M.D. [address] [place] [phone] Pain Buttock; Piriformis Syndrome Left Social History Tobacco Use Types Packs/Day Years Used Date Smoking Tobacco: Never Smokeless Tobacco: Never Alcohol Use Standard Drinks/Week Comments Yes 4 (1 standard drink = 0.6 oz pur e alcohol) [facility] Utilities Answer Date Recorded In the past 12 months has [employer] electric, gas, oil, or water company threatened [...] How often do you attend [facility] or congregation services? More than 4 times per year 07/08/2022 Do you belong to any clubs o r organizations such as nondenominational groups, unions, fraternal or athletic groups, or [...] Answer Date Recorded PHQ-2 Score 2 07/29/2020 [facility] of Occupat ional Health - Occupational Stress [...] your living situation today? I have a [facility] place to live 07/28/2023 Education Answer Date Recorded What is the highest level of school you have completed or the highest degree you have received? Some college, no degree 07/22/2020 Comments No Sex and Gender Information Value Date Recorded Sex Assigned at Female 01/12/2022 11:36 AM CDT Legal Sex Female 8:27 AM CDT Gender Identity Female 07/22/2020 2:09 PM INDUSTRIAL GAS FITTER HELPER Sexual Orientation Straight 07/22/2020 2: 09 PM INDUSTRIAL GAS FITTER HELPER documented as of this encounter Procedure Notes * Milton Castellon M.D. - 07/26/2024 2:30 PM CSTAssociated Order(s): PM Trigger point injection Pre-Procedure Diagnose(s): Piriformis Syndrome Left Post-Procedure Diagnose(s): Piriformis Syndrome Left PM Trigger point injection (left piriformis) Performed [...] the piriformis muscle. After visualization of the needletip in the target area and negative aspiration, the medication was injected into the piriformis muscle. Following the injection, the needle was withdrawn. The patient tolerated the procedure well andthere were no apparent complications. After an appropriate [...] fellow participated in the procedure, and the consultant rn was present for the entire procedure. OPERATIVE NOTE INFORMATION Specimens: 0 Drains: 0 Estimated blood loss: 0 Implants: 0 STRIAL GAS FITTER HELPER documented in this encounter Plan of Treatment Upcoming Encounters Date Type Department Care Team (Latest Contact Info) Description 09/03/2024 3:30 PM CDT Clinical Communication Virtual Review in [address] [phone] 09/04/2024 1:30 PM CDT Office Visit Division of Pain Medicine in [address] [phone] David Kerns APRN, C.N.P., D.N.P. [address] [place] [phone] documented as of this encounter Procedures Procedure Name Priority Date/Time Associated Diagnosis Comments ID US GUIDE PLC NDL Routine 07/26/2024 2 :30 PM INDUSTRIAL GAS FITTER HELPER Piriformis Syndrome Left ID INJ TRIGGER PNT<=2 MUS Routine 07/26/2024 2:30 PM INDUSTRIAL GAS FITTER HELPER Piriformis Syndrome Left documented in this encounter Results * ID INJ TRIGGER PNT<=2 MUS, ID US GUIDE PLC NDL (07/26/2024 2:30 PM INDUSTRIAL GAS FITTER HELPER) Narrative MMODAL - 07/26/2024 2:30 PM INDUSTRIAL GAS FITTER HELPER Milton Castellon M.D. 07/26/2024 4:06 PM PM [...] fellow participated in the procedure, and the consultant rn was present for the entire procedure. OPERATIVE NOTE INFORMATION Specimens: 0 Drains: 0 Estimated blood loss: 0 Implants: 0 David Kerns APRN, C.N.P ., D.N.P. PROCEDURE/MINOR SURGICAL ORDERABLES Final Result MMODAL NA documented in this encounter Visit Diagnoses Diagnosis Pain Buttock Piriformis Syndrome Left documented in this encounter Administered Medications Inactive Administered Medications - up to 3 most recent administrations Medication Order MAR Action Action Date Dose Rate Site dexAMETHasone injection 10 mg (Decadron) 10 mg, injection, One-Time Injection, Starting on Loan 07/26/24 at 1430, For 1 doseIndications:Piriformis Syndrome Left Given 07/26/2024 2:30 PM INDUSTRIAL GAS FITTER HELPER 10 mg lidocaine 20 mg/mL injection 3 mL (Xylocaine) 3 mL, injection, One-Time Injection, Starting on Loan 07/26/24 at 1430, For 1 doseIndications:Piriformis Syndrome Left Given 07/26/2024 2:30 PM INDUSTRIAL GAS FITTER HELPER 3 mL documented in this encounter Additional Health Concerns Assessment Noted Time PHQ-9 Depression Total Score: 6 07/29/19 21 4:31 PM INDUSTRIAL GAS FITTER HELPER documented as of this encounter Care Teams Nurse Practitioner Physician Assistant Relationship Specialty Start Date End Date Elsewhere, Pcp PCP - General Internal Medicine 04/17/24 documented as of this encounter
--- OUTSIDE RECORDS SUMMARY | 2024-08-15 15:47 | XMS_ITS | Encounter Summary ---
Author Organization [facility] Address [address] [place] [address]. [place] [address] Care Team Providers Care Alarm Operator Name Role Phone No Ref-Primary, Physician Primary Care Provider Axel Victor MD Unavailable Lawrence Rowland PA-C Unavailable + [phone] Axel Victor MD Primary Care Provider [phone] Encounter Details Date Type Department Care Team (Late st Contact Info) Description 01/13/2024 [facility] Medical Advice [facility] [address] 4[address] [place] [address] Pita Vinson RN Social History Tobacco Use Types Packs/Day [...] on file Legal Sex Female 3:12 AM CHEMIST STEROIDS Gender Identity Not on file Sexual Orientation Not on file documented as of this encounter Plan of Treatment Upcoming Encounters Date Type Department Care Team (Late st Contact Info) Description 08/29/2024 3:30 PM CDT Office Visit [facility] [address] [place] [address] [place] [address] [place], [place] [phone] documented as of this encounter Visit Diagnoses Not on filedocumented in this encounter Additional Health Concerns Assessment Noted Time PHQ-9 Depression Total Score: 13 023 10:50 AM CDT documented as of this encounter Care Teams Alarm Operator Relationship Specialty Start Date End Date No Ref-Primary, Physician PCP - General 07/03/19 07/24/24 [place] [address] [place], [place] [phone] PCP - General Family Medicine 07/25/24 [place] [address] [address] [address] [id number] Assigned PCP 06/30/23 Lawrence Rowland PA-C 1 [facility] [place] [id number] Assigned Sleep Provider 08/19/23 documented as of this encounter
--- OUTSIDE RECORDS SUMMARY | 2024-08-15 15:47 | XMS_ITS ---
Author Organization [facility] Address [address] , [address] [place] [address] Phone Care Team Providers Care Financial Aid Coordinator Name Role Phone Westley Shields MD Unavailable Conditions or Problems Problem Name Problem Code Onset Date Status Entry Date Provider Comment Standard Description Annotate Hand numbness [id number] (SNOMED CT) Active Westley Shields MD Numbness of hand Medications No information available. Medications Administered No information available. Allergies, Adverse Reactions, Alerts No information available. Results No information available. Plan of Care No information available. Procedures Code Procedure Name Date Entry Date CPT-43691 Nerve Conduction 9-10 studies CPT-35089 EMG with NCS (5+ muscles) - 1 limb 07/26 Vital Signs No information available. Immunizations No information available. Advance Directives No information available.
--- OUTSIDE RECORDS SUMMARY | 2024-08-15 15:47 | XMS_ITS | Encounter Summary ---
Author Organization [facility] Address [address] [place] [address] Care Team Providers Care Marine Design Engineer Name Role Phone Elsewhere, Pcp Primary Care Provider Unavailabl e Reason for Referral * Outpatient (Routine) - Authorized Specialty Diagnoses / Procedures Referred By Contac t Referred To Contact Diagnoses Hallux Rigidus Left Procedures DX Foot Left 3+ Views Alysa Haddad P.A.-C. [address] [place] [phone] Phone: tel: fax: [facility] Referral ID Status Reason Start Date Expiration Date V isits Requested Visits Authorized [id number] Authorized 07/04/2024 10/04/2025 1 1 ANALYST * Outpatient (Routine) - Authorized Specialty Diagnoses / Procedures Referred By Contac t Referred To Contact Orthopedic Surgery Alysa Haddad P.A.-C. [address] [place] [phone] Phone: tel: fax: Ulysses Daugherty M.D. [address] [place] [phone] Phone: tel: fax: Referral ID Status Reason Start Date Expiration Date V isits Requested Visits Authorized [id number] Authorized 07/04/2024 01/03/2026 1 1 ANALYST Reason for Visit * Outpatient (Routine) - Closed Specialty Diagnoses / Procedures Referred By Tereza hood Referred To Contact Orthopedic Surgery Maico Thomas P.A.-C. [address] [place] [phone] Phone: tel: fax: Ulysses Daugherty M.D. [address] [place] [phone] Phone: tel: fax: Referral ID Status Reason Start Date Expiration Date Visits Re quested Visits Authorized [id number] Closed 05/29/2024 11/28/2025 1 1 Encounter Details Date Type Department Care Team (Late st Contact Info) Description 07/04/2024 11:00 AM SAS ANALYST Office Visit Department of Orthopedic Surgery in [place], [place] [address] [place] [phone] Ulysses Daugherty M.D. [address] [place] [phone] Alysa Haddad P.A.-C. [address] [place] [phone] Hallux Rigidus Left (Primary Dx) Social History Tobacco Use Types Packs/Day Years Used Date Smoking Tobacco: Never Smokeless Tobacco: Never Alcohol Use Standard Drinks/Week Comments Yes 4 (1 standard drink = 0.6 oz pur e alcohol) [facility] Utilities Answer Date Recorded In the past 12 months has e electric, gas, oil, or water [employer] threatened to shut off services in your [...] week 07/08/2022 How often do you attend chur or synagogue services? More than 4 times per year 07/08/2022 Do you belong to any clubs o r organizations such as oriental orthodox groups, unions, fraternal or athletic groups, or [...] Answer Date Recorded PHQ-2 Score 2 07/29/2020 [facility] [place] of Occupat ional Health - Occupational Stress [...] your living situation today? I have a [facility] place to live 07/28/2023 Education Answer Date Recorded What is the highest level of school you have completed or the highest degree you have received? Some college, no degree 07/22/2020 Comments No Sex and Gender Information Value Date Recorded Sex Assigned at Female 01/12/2022 11:36 AM CDT Legal Sex Female 8:27 AM CDT Gender Identity Female 07/22/2020 2:09 PM SAS ANALYST Sexual Orientation Straight 07/22/2020 2: 09 PM SAS ANALYST documented as of this encounter Progress Notes * Alysa Haddad P.A.-C. - 07/04/2024 11:00 AM CST CHIEF COMPLAINT / PURPOSE OF VISIT: Status post left first MTP joint arthrodesis with deep hardware removal (April 19, 2024) HISTORY OF PRESENT ILLNESS: Samantha Mendoza returns about 12 weeks from the time of surgery. She's full weightbearing in the flat Darco shoe. She's doing well without pain. PHYSICAL EXAMINATION: General: Awake and alert. No acute distress Skin: The incisions are well-healed. Musc: Alignment of the forefoot is satisfactory. Neurovascularly intact. IMAGING: Weightbearing x-rays of the left foot were obtained today and reviewed. They show satisfactory alignment with no evidence of hardware failure. There is osseus bridging across the fusion site. ASSESSMENT & PLAN: The patient is doing well. She can transition into regular shoes and gradually progress activities as tolerated. We will gradually let pain be her guide. Typically, we will see the patient one year from the time of surgery for final follow-up. However, she is possibly considering surgery on the right foot sooner. If she would like to move forward boot but this she will call and let us know. She expressed understanding. All questions were answered. ANALYST ANALYST documented in this encounter Miscellaneous Notes * Addendum Note - Alysa Haddad P.A.-C. - 07/04/2024 11:00 AM CSTAddended by: ALYSA HADDAD on: 07/04/2024 11:35 AM Modules accepted: Orders ANALYST documented in this encounter Plan of Treatment Upcoming Encounters Date Type Department Care Team (Latest Contact Info) Description 09/03/2024 3:30 PM CDT Clinical Communication Virtual Review in [place], [place] 200 [place] [phone] 09/04/2024 1:30 PM CDT Office Visit Division of Pain Medicine in [address] [phone] David Kerns APRN, C.N.P., D.N.P. [address] [place] [phone] Scheduled Orders Name Type Priority Associated Diagnoses Orde r Schedule DX Foot Left 3+ Views Imaging RAD - Routine (most inpatients and all outpatients) Hallux Rigidus Left Expected: 04/19/2025 (Approximate), Expires: 07/04/2025 Scheduled Referrals Name Type Priority Associated Diagnoses Order Schedule Orthopedic Surgery office visit (clinic) Outpatient Referral Routine Expected: 04/19/2025 (Approximate), Expires: 10/02/2025 documented as of this encounter Visit Diagnoses Diagnosis Hallux Rigidus Left- Primary documented in this encounter Additional Health Concerns Assessment Noted Time PHQ-9 Depression Total Score: 6 07/29/19 21 4:31 PM SAS ANALYST documented as of this encounter Care Teams Marine Design Engineer Relationship Specialty Start Date End Date Elsewhere, Pcp PCP - General Internal Medicine 04/17/24 documented as of this encounter
--- OUTSIDE RECORDS SUMMARY | 2024-08-15 15:47 | XMS_ITS | Encounter Summary ---
Author Organization [facility] Address [address] [place] [address]. [place] [address] Care Team Providers Care Accelerator Operator Name Role Phone No Ref-Primary, Physician Primary Care Provider Axel Victor MD Unavailable Amina De Paz MD Unavailable [phone] Axel Victor MD Unavailable Lawrence Rowland PA-C Unavailable + [phone] Axel Victor MD Primary Care Provider [phone] Encounter Details Date Type Department Care Team (Late st Contact Info) Description 01/13/2023 [facility] Medical Advice [facility] [address] [place] [phone] Shelby Vinson Social History Tobacco Use Types Packs/Day Years Used Date Smoking Tobacco: Never Alcohol Use Standard Drinks/Week Comments Yes 0 (1 standard drink = 0.6 oz pur e alcohol) 3 drinks per week Comments No Sex and Gender Information Value Date Recorded Sex Assigned at Not on file Legal Sex Female 3:12 AM ROBOTIC MAINTENANCE TECHNICIAN Gender Identity Not on file Sexual Orientation Not on file documented as of this encounter Plan of Treatment Upcoming Encounters Date Type Department Care Team (Late Contact Info) Description 08/29/2024 3:30 PM CDT [facility] [address] [place] [phone] [place] [address] [place] [address] documented as of this encounter Visit Diagnoses Not on filedocumented in this encounter Care Teams Accelerator Operator Relationship Specialty Start Date End Date No Ref-Primary, Physician PCP - General 07/03/19 07/24/24 [place] [id number] [place] [address] [phone] PCP - General Family Medicine 07/25/24 [place] [address] [place] [phone] Assigned PCP 03/03/23 06/17/23 Amina De Paz MD [address] [place] [address] Assigned PCP 06/18/23 06/29/23 [place] [address] [place] [phone] Assigned PCP 06/30/23 Lawrence Rowland PA-C 1 [facility] [place] [address] Assigned Sleep Provider 08/19/23 documented as of this encounter
--- OUTSIDE RECORDS SUMMARY | 2024-08-15 15:47 | XMS_ITS | Encounter Summary ---
Author Organization [facility] Address [address] [place] [phone] Care Team Providers Care Extrusion Die Coordinator Name Role Phone Elsewhere, Pcp Primary Care Provider Unavailabl e Reason for Referral * Outpatient (Routine) - Closed Specialty Diagnoses / Procedures Referred By Contac t Referred To Contact Diagnoses Pain Big Great Toe Left Procedures DX Foot Left 3+ Views Maico Thomas, P.A.-CKerry [address] [place] [phone] Phone: tel: fax: [facility] Referral ID Status Reason Start Date Expiration Date Visits Re quested Visits Authorized [id number] Closed 05/29/2024 05/29/2025 1 1 VITY ASSISTANT Reason for Visit * Outpatient (Routine) - Closed Specialty Diagnoses / Procedures Referred By Contac t Referred To Contact Diagnoses Pain Big Great Toe Left Procedures DX Foot Left 3+ Views Maico Thomas, P.A.-C. [address] [place] [phone] Phone: tel: fax: [facility] Referral ID Status Reason Start Date Expiration Date Visits Re quested Visits Authorized [id number] Closed 05/29/2024 05/29/2025 1 1 Encounter Details Date Type Department Care Team (Latest Contact Info) Description 07/04/2024 9:28 AM ACTIVITY ASSISTANT - 07/04/2024 11:59 PM ACTIVITY ASSISTANT Hospital Encounter Department of Radiology, [facility], in [place], [place] [address] [place] [address] [place] [phone] Maico Thomas P.A.-C. 200 [place] [address] Pain Big Great Toe Left Discharge Disposition: Home or Self Care Social History Tobacco Use Types Packs/Day Years Used Date Smoking Tobacco: Never Smokeless Tobacco: Never Alcohol Use Standard Drinks/Week Comments Yes 4 (1 standard drink = 0.6 oz pur e alcohol) [facility] Utilities Answer Date Recorded In the past 12 months has e electric, gas, oil, or water company [...] 07/08/2022 How often do you attend chur ch or christianity services? More than 4 times per year 07/08/2022 Do you belong to any clubs o r organizations such as episcopal groups, unions, fraternal or athletic groups, or [...] Answer Date Recorded PHQ-2 Score 2 07/29/2020 [facility] [place] of Occupat ional Health - Occupational Stress [...] your living situation today? I have a [facility] place to live 07/28/2023 Education Answer Date Recorded What is the highest level of school you have completed or the highest degree you have received? Some college, no degree 07/22/2020 Comments No Sex and Gender Information Value Date Recorded Sex Assigned at Female 01/12/2022 11:36 AM CDT Legal Sex Female 8:27 AM CDT Gender Identity Female 07/22/2020 2:09 PM ACTIVITY ASSISTANT Sexual Orientation Straight 07/22/2020 2: 09 PM ACTIVITY ASSISTANT documented as of this encounter Medications at Time of Discharge atorvastatin (LIPITOR) 20 mg tablet TAKE 1 TABLET BY MOUTH EVERY NIGHT FOR CHOLESTEROL OR STROKE PREVENTION 08/02/2022 bisacodyL (Dulcolax) 5 mg EC tablet Take 10 mg by mouth. cyclobenzaprine (FlexeriL) 10 mg tablet Take 10 mg by mouth as needed. 10/10/2023 hydrOXYzine (VistariL) 25 mg capsule Take 1 capsule (25 mg total) by mouth every 6 (six) hours as needed for itching. 30 capsule 05/29/2024 MAGNESIUM ORAL Take 1 capsule by mouth at bedtime. pimecrolimus (ELIDEL) 1 % cream as needed. 05/03/2022 sertraline (Zoloft) 50 mg tablet Take 50 mg by mouth. 03/26/2024 traZODone (DesyreL) 50 mg tablet Take 2 tablets by mouth at bedtime. 03/26/2024 VITAMIN D2-VITAMIN K1 ORAL Take by mouth. aspirin 325 mg tablet Take 1 tablet (325 mg total) by mouth 2 (two) times a day with meals. Beginning the day after surgery, take twice daily until done with immoblization. 100 tablet 1 04/20/2024 07/26/19 25 cholecalciferol, vitamin D3, (Vitamin D3) 10 mcg (400 unit) capsule Take by mouth. 25 diazePAM (Valium) 5 mg tablet Take 1 hr prior to scheduled MRI for anxiety 02/07/2024 07/26/19 25 HYDROmorphone (Dilaudid) 2 mg tabletIndications:A cute Pain Exception Take 1-2 tablets (2-4 mg total) by mouth every 4-6 hours as needed for pain not controlled by Tylenol (acetaminophen) 20 tablet 04/23/2024 07/26/19 25 hydrOXYzine (VistariL) 25 mg capsule Take 1 capsule (25 mg total) by mouth every 6 (six) hours as needed for anxiety. 120 capsule 3 05/29/2024 07/26/19 25 ondansetron ODT (Zofran-ODT) 4 mg disintegrating tablet Dissolve 1 tablet (4 mg total) in the mouth every 8 (eight) hours as needed for nausea or vomiting. 15 tablet 04/18/2024 2:59 PM ACTIVITY ASSISTANT 04/19/2024 07/26/19 25 documented as of this encounter Plan of Treatment Upcoming Encounters Date Type Department Care Team (Latest Contact Info) Description 09/03/2024 3:30 PM CDT Clinical Communication Virtual Review in [place], [place] 200 [place] [address] 09/04/2024 1:30 PM CDT Office Visit Division of Pain Medicine in [place], [place] [address] [place] [phone] David Kerns APRN, C.N.P., D.N.P. [address] [place] [phone] documented as of this encounter Procedures Procedure Name Priority Date/Time Associated Diagnosis Comments DX FOOT LEFT 3+ VIEWS RAD - Routine (most inpatients and all outpatients) 07/04/2024 9:42 AM ACTIVITY ASSISTANT Pain Big Great Toe Left documented in this encounter Results * DX Foot Left 3+ Views (07/04/2024 9:42 AM ACTIVITY ASSISTANT) Anatomical Region Laterality Modality Lower Extremity, Foot, Muscu loskeletal RST LOS, Musculoskeletal ARZ LOS, Muskuloskeletal FLA LOS Left Digit al Radiography Impressions 07/04/2024 9:51 AM ACTIVITY ASSISTANT Left 1st MTP joint arthrodesis with plate and screw fixation. Surgical hardware is intact. Early bridging bone formation across the joint space. Calcaneal spurs. Narrative 07/04/2024 9:51 AM ACTIVITY ASSISTANT EXAM: DX FOOT LEFT 3+ VIEWS Procedure Note Shiraz Wills M.D. - 07/04/2024 EXAM: DX FOOT LEFT 3+ VIEWS IMPRESSION: Left 1st MTP joint arthrodesis with plate and screw fixation. Surgicalhardware is intact. Early bridging bone formation across the joint space.Calcaneal spurs. Maico Thomas P.A.-C. [facility] OC[facility] Final Result documented in this encounter Visit Diagnoses Diagnosis Pain Big Great Toe Left documented in this encounter Additional Health Concerns Assessment Noted Time PHQ-9 Depression Total Score: 6 07/29/19 21 4:31 PM ACTIVITY ASSISTANT documented as of this encounter Care Teams Extrusion Die Coordinator Relationship Specialty Start Date End Date Elsewhere, Pcp PCP - General Internal Medicine 04/17/24 documented as of this encounter
[2024-08-15 15:49] LABS: Slide Review Reflex No
[2024-08-15 16:01] LABS: C Reactive Protein* 12.3 mg/dL (0.5-1.0)
[2024-08-15] MEDS: PIPERACILLIN/TAZOBACTAM 4.5 GM in 0.9 % SODIUM CHLORIDE Mini-bag 100 ML IVPB (17:35)
[2024-08-15] MEDS: ONDANSETRON 2 MG/ML inj 4 MG IVP (17:35)
[2024-08-15] MEDS: KETOROLAC 15 MG/ML inj IVP (17:35)
== END 2024-08-15 18:14 | disposition home or self-care (01) ==
PROVIDERS: Emergency Provider Family Medicine
DX: R10.9 Unspecified abdominal pain (principal)
CPT/HCPCS: 36415; 74177; 80048; 81001; 82150; 82565; 85025; 86140; 87086; 94761; 96365; 96375; 99284; 99285; J1885; J2270; J2405; J2543; J7030; Q9967